=== PATIENT | female | born 1935 ===

== ENCOUNTER 2016-03-17 09:36 | Emergency (ER) | payer MEDICAID ==
[~2016-03-17] VITALS: Ht 154.9 cm; Wt 91.4 kg
[~2016-03-17 09:36] MED LIST: ACET-1890 PO; AZIT250T4 PO; HYDR12.5 PO; LISI-610 PO; METO50TA7 PO; PANT40TA2 PO; PRE20 PO
[2016-03-17 09:40] VITALS: PULSE 48; RESP 18; O2SAT 99
[2016-03-17 10:40] LABS: BASOPHILS % (AUTO) 0.2 % (0-3); EOSINOPHILS % (AUTO) 1.6 % (0-5); MONOCYTES % (AUTO) 5.4 % (4-12); Mean Corpuscular Hemoglobin 28.7 pg (27.0-35.0); Mean Corpuscular Volume 87.3 fL (81-100); NEUTROPHILS % (AUTO) 72.3 % (40-74); Platelet Count 153 bil/L (150-400)
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
[2016-03-17 10:58] VITALS: BP 142/73; PULSE 53; RESP 18; O2SAT 100
--- NOTE | 2016-03-17 11:24 | DRSVH ---
PROCEDURE: X-RAY LEFT TIBIA/FIBULA, TWO VIEWS ([id number]) INDICATIONS: Ground level fall with edema left knee TECHNIQUE: 2 views of the tibia and fibula were acquired. COMPARISON: None. FINDINGS: Bones: No fractures or dislocations. No suspicious bony lesions. Soft tissues: No suspicious soft tissue calcifications or masses. IMPRESSION: No fracture. No osseous lesion. If symptoms and/or clinical suspicion for pathology pers ists, further assessment with repeat radiographs or advanced imaging (e.g. CT, MRI or bone scan) may be helpful for further assessment. Dictated by: Esther Wood MD, PhD on 03/17/2016 at 11:22 Approved by: Esther Wood MD, PhD on 03/17/2016 at 11:23
--- NOTE | 2016-03-17 11:24 | DRSVH ---
PROCEDURE: X-RAY LEFT KNEE, ONE OR TWO VIEWS ([id number]) INDICATIONS: Ground level fall with edema left knee TECHNIQUE: 2 views of the knee were acquired. COMPARISON: None. FINDINGS: Bones: No fractures or dislocations. No suspicious bony lesions. Soft tissues: No joint effusion. No suspicious soft tissue calcifications. IMPRESSION: No fracture. No osseous lesion. If symptoms and/or clinical suspicion for pathology pers ists, further assessment with repeat radiographs or advanced imaging (e.g. CT, MRI or bone scan) may be helpful for further assessment. Dictated by: Esther Wood MD, PhD on 03/17/2016 at 11:21 Approved by: Esther Wood MD, PhD on 03/17/2016 at 11:22
[2016-03-17 12:14] VITALS: BP 142/73; PULSE 53; RESP 18; O2SAT 100
== END 2016-03-17 12:15 | disposition home or self-care (01) ==
LOC: SED 09:36
DX: S89.92XA Unspecified injury of left lower leg, initial encounter (principal); W18.39XA Other fall on same level, initial encounter; Y93.01 Activity, walking, marching and hiking; Y99.8 Other external cause status; Y92.019 Unspecified place in single-family (private) house as the place of occurrence of the external cause; I10 Essential (primary) hypertension; J44.9 Chronic obstructive pulmonary disease, unspecified; Z86.39 Personal history of other endocrine, nutritional and metabolic disease; Z87.891 Personal history of nicotine dependence; Z86.73 Personal history of transient ischemic attack (TIA), and cerebral infarction without residual deficits; Z79.52 Long term (current) use of systemic steroids; Z87.828 Personal history of other (healed) physical injury and trauma

== ENCOUNTER 2016-03-28 20:22 | Emergency (ER) | payer MEDICAID ==
[~2016-03-28] VITALS: Ht 154.9 cm; Wt 93.2 kg
[2016-03-28 20:25] VITALS: PULSE 52; RESP 16; O2SAT 100
--- NOTE | 2016-03-28 21:33 | ED.REPORT ---
HPI-Extremity Problem Lower Date of Service Mar 28, 2016 ED Provider: Shahnaz Sage MD Pt is a 80 y/o female w/ a hx of hypertension, COPD, hyperlipidemia, TIA, presenting to the ED with family due to left leg swelling onset about 2 days ago. The patient was seen here on Mar 17 after a fall at which point x-rays were negative. She c/o associated mild LLE pain, mild subjective fever. Pain is not exacerbated by range of motion. She denies pain above the knee, numbness or weakness of the left leg or foot, change in CP or SOB. She is not anticoagulated. Nursing Notes Stated Complaint: L LEG SWELLING Chief Complaint: Extremity Trauma Nursing Notes Reviewed: Yes Allergies: Coded Allergies: No Known Allergies (Verified , 03/28/16) Scheduled Acetaminophen (Tylenol) 325 Mg Tablet 975 MG PO Q8H Azithromycin (Zithromax (Z-Chandrakant)) 250 Mg Tablet 250 MG PO DIRECTED Take two tablets by mouth on day 1, then take one tablet daily on days 2 through 5. Cephalexin (Keflex) 500 Mg Capsule 500 MG PO QID Hydrochlorothiazide (Hydrochlorothiazide) 12.5 Mg Capsule 12.5 MG PO DAILY Lisinopril (Zestril) 10 Mg Tablet 10 MG PO DAILY Metoprolol Succinate ER (Toprol XL) 50 Mg Tablet.er 50 MG PO DAILY Pantoprazole DR (Protonix) 40 Mg Tablet 40 MG PO DAILYAC Prednisone (PredniSONE) 20 Mg Tablet 40 MG PO DAILY Prednisone (PredniSONE) 20 Mg Tablet 40 MG PO DAILY General Time Seen by MD: 21:29 Chief Complaint Other (Left leg swelling) Hx Obtained From: Patient, Other family... Arrived By: Walk-in Onset Occurred: 3 days ago Symptom Duration: Since onset Location: : Leg left Quality: Fullness, Painful Severity: Current: Mild Severity: Maximum: Mild Recent Healthcare: Recent doctor visit Similar Sx Previous: No Past Medical History Past Medical History Reports: COPD, Hyperlipidemia, Hypertension, Transient ischemic attack Past Surgical History Reports: Inguinal hernia repair Smoking History Former Smoker Social History Alcohol Use: Denies alcohol use Drug Use: Denies drug use Other Social History: Good social support Ambulatory Status Cane Review of Systems Constitutional: Reports: Fever Musculoskeletal: Reports: Extremity pain, Extremity swelling Neurologic: Denies: Numbness, Weakness Complete sys rev & neg: except as marked. Respiratory: Denies: Shortness of breath Cardiovascular: Denies: Chest pain Physical Exam Initial Vital Signs Vital Signs (First) Date Time Temp Pulse Resp B/P Pulse Ox O2 Delivery O2 Flow Rate FiO2 03/28/16 20:25 35.9 52 16 100 Room Air Initial VS: Reviewed Head / Eyes: Atraumatic, Normocephalic, PERRL ENT: Mucous membranes moist, Conjunctiva normal, No scleral icterus Neck: Supple, Full range of motion Respiratory: Breath sounds normal, Clear to auscultation, No respiratory distress Cardiovascular: Regular rate & rhythm, Heart sounds normal, Intact distal pulses Abdomen / GI: Soft Skin: Warm, Dry, No cyanosis Neurologic: Alert, Oriented, Nonfocal Psychiatric: Mood/affect normal, Behavior normal, Normal thought content Lower Extremity / Pelvis / MS: Atraumatic, Full range of motion, No deformity, Neurologic intact, Vascular intact LLE is erythematous and edamatous compared to the right. Calf and interior govea are tender to palpation 2+ DP pulse Ankle / Foot: Atraumatic, No deformity, Neurologic intact, Vascular intact General/Constitutional: Awake, Alert, No acute distress, Cooperative, Not toxic appearing Appearance / Presentation: Positive: Obese Interpretation & Diagnostics Interpretation & Diagnostics: US LLE: No evidence of DVT. Complex fluid collection in the proximal calf. The appearance suggets hematoma. Transmitted to the ED by Carlitos Telles MD at 2310 Lab Results Interpretation Result Diagram: 03/28/16 2329 03/28/16 2313 Test 03/28/16 23:13 03/28/16 23:29 Prothrombin Time 11.4sec (8.1-12.5) Prothromb Time International Ratio 1.06ratio Sodium Level 140mEq/L (134-144) Potassium Level 4.1mEq/L (3.5-5.2) Chloride Level 101mEq/L (97-108) Carbon Dioxide Level 24mmol/L (18-29) Blood Urea Nitrogen 12mg/dL (8-27) Creatinine 1.14mg/dL (0.57-1.00) Estimat Glomerular Filtration Rate 66mL/min (>59) Glucose Level 108mg/dL (60-99) Calcium Level 9.6mg/dL (8.5-10.1) Total Bilirubin 0.4mg/dL (0.0-1.2) Aspartate Amino Transf (AST/SGOT) 13U/L (0-50) Alanine Aminotransferase (ALT/SGPT) 10U/L (0-32) Alkaline Phosphatase 113U/L (25-165) Total Protein 6.7g/dL (6.4-8.4) Albumin 3.9g/dL (3.4-5.0) White Blood Count 8.2th/mm3 (3.8-10.1) Red Blood Count 4.36mil/mm3 (3.90-5.20) Hemoglobin 12.4g/dL (12.0-15.6) Hematocrit 38.0% (35.0-46.0) Mean Corpuscular Volume 87.2fL (81-100) Mean Corpuscular Hemoglobin 28.4pg (27.0-35.0) Mean Corpuscular Hemoglobin Concent 32.6% (32.0-37.0) Red Cell Distribution Width 13.8% (12.3-15.4) Platelet Count 216bil/L (150-400) Neutrophils (%) (Auto) 65.4% (40-74) Lymphocytes (%) (Auto) 24.4% (14-46) Monocytes (%) (Auto) 7.5% (4-12) Eosinophils (%) (Auto) 2.1% (0-5) Basophils (%) (Auto) 0.4% (0-3) Hold Purple Top Tube Received (Received) Hold [place] Top Tube Received (Received) Hold Colon Top Tube Received (Received) X-Ray Interpretation X-Ray Ordered: Tibia fibula left Interpretation / Wet Read by: Wet read ED physician Interpretation: Normal exam, No fracture/dislocation X-Ray Ordered: Knee left Interpretation / Wet Read by: Wet read ED physician Interpretation: Normal exam, No fracture/dislocation Re-Eval/Medical Decision Med Decision/Clinical Course 80-year-old female here with left lower extremity pain, redness, swelling. Differential diagnosis includes but is not limited to DVT versus cellulitis versus fracture versus dislocation. X-rays are unremarkable. Ultrasound shows hematoma without any evidence of DVT. Patient was given her first dose of Keflex in the emergency department, for presumed cellulitis. Her labs show very mild renal insufficiency and normal CBC. She was given a prescription for Keflex to go home with, and strict return precautions. She is amenable to discharge. Re-Evaluation/Progress : Time of Eval: 23:23 Re-Evaluation/Progress Note: Pt rechecked. Informed pt of plan for treatment. Pt understands and agrees with plan for treatment. F/U instructions and RTER warnings given. All questions addressed. Counseled Regarding: Diagnosis, Need for follow-up, When/why to return to ED Discharge & Departure Impression: Primary Impression: Cellulitis of left leg Disposition: Home Discharge Condition All VS Reviewed: Yes Condition: Stable Patient Instructions: Cellulitis (ED) Additional Instructions: The ultrasound showed no sign of blood clot in the leg. The x-rays were normal. The cause of your leg swelling is uncertain, but it may be cellulitis, an infection of the skin which can cause these symptoms. Take the full course of Keflex as directed. Take Ibuprofen as needed for pain. Return to the emergency department for high fever, numbness or weakness of the left leg or foot, vomiting, severe pain, increased swelling, spreading rash, or for other concerning symptoms. Follow-up with your primary care doctor in 2-3 days for a recheck. Referrals: Kandace Manning MD (PCP) Eder Attestation Portions of this note were transcribed by Jason Baumann. I, Dr. Sage, personally performed the history, physical exam and medical decision-making; I reviewed and confirmed the accuracy of the information in the transcribed note. Signed by Eder Hernandez, 03/28/16 - 2200 copies to: Kandace Manning MD, Rebecca A MD Mar 28, 2016 21:33 JASON BAUMANN Mar 28, 2016 21:45
[2016-03-28 23:48] LABS: BASOPHILS % (AUTO) 0.4 % (0-3); EOSINOPHILS % (AUTO) 2.1 % (0-5); MONOCYTES % (AUTO) 7.5 % (4-12); Mean Corpuscular Hemoglobin 28.4 pg (27.0-35.0); Mean Corpuscular Volume 87.2 fL (81-100); NEUTROPHILS % (AUTO) 65.4 % (40-74); Platelet Count 216 bil/L (150-400)
[2016-03-28] MEDS ORDERED: CEPH-512 PO (23:56)
[2016-03-29 00:01] LABS: INR 1.06 ratio
[2016-03-29 00:25] VITALS: BP 148/78; PULSE 48; RESP 18; O2SAT 99
--- NOTE | 2016-03-29 08:03 | DRSVH ---
PROCEDURE: US VEINOUS LEG DUPLEX UNILATERAL, LEFT INDICATIONS: LLE swelling TECHNIQUE: Real-time imaging, as well as color and pulse Doppler interrogation, were performed of the lower extr emity deep veins from the inguinal ligament to the popliteal fossa. COMPARISON: None. FINDINGS: The deep veins are normally compressible, and free of intraluminal thrombus. Color and pu lse Doppler demonstrate normal phasic intraluminal flow. There is normal augmentation response to di stal compression maneuver. Within the medial left calf, there is an intramuscular lobulated fluid collection measuring approxima tely 3.7 x 1.2 x 3.77 m with a few internal heterogeneous echoes. No internal vascularity on color D oppler interrogation. Findings are suggestive of a hematoma. IMPRESSION: 1. No evidence of deep venous thrombosis in the left lower extremity. 2. Lobulated fluid collection in the medial left calf likely representing a hematoma. Dictated by: Fei Ortiz M.D. on 03/29/2016 at 7:58 Approved by: Fei Ortiz M.D. on 03/29/2016 at 8:01
--- NOTE | 2016-03-29 08:04 | DRSVH ---
PROCEDURE: X-RAY LEFT TIBIA/FIBULA, TWO VIEWS ([id number]) INDICATIONS: swelling TECHNIQUE: 2 views of the tibia and fibula were acquired. COMPARISON: [facility], CR, XR TIBIA FIBULA 2VW LT, 03/17/2016, 10:59. FINDINGS: Bones: No fractures or dislocations. There is osteopenia. No suspicious bony lesions. Soft tissues: No suspicious soft tissue calcifications or masses. IMPRESSION: 1. No fracture or dislocation. 2. Osteopenia. Dictated by: Fei Ortiz M.D. on 03/29/2016 at 8:02 Approved by: Fei Ortiz M.D. on 03/29/2016 at 8:03
--- NOTE | 2016-03-29 08:09 | DRSVH ---
PROCEDURE: X-RAY LEFT KNEE, THREE VIEWS ([id number]) INDICATIONS: swelling TECHNIQUE: 3 views of the knee were acquired. COMPARISON: None. FINDINGS: Bones: No fractures or dislocations. There is osteopenia. No suspicious bony lesions. Soft tissues: No joint effusion. No suspicious soft tissue calcifications. IMPRESSION: 1. No fracture or subluxation. Dictated by: Fei Ortiz M.D. on 03/29/2016 at 8:03 Approved by: Fei Ortiz M.D. on 03/29/2016 at 8:07
== END 2016-03-29 00:30 | disposition home or self-care (01) ==
LOC: SED 20:22
DX: L03.116 Cellulitis of left lower limb (principal); R50.9 Fever, unspecified; I10 Essential (primary) hypertension; J44.9 Chronic obstructive pulmonary disease, unspecified; E78.5 Hyperlipidemia, unspecified; Z87.891 Personal history of nicotine dependence; Z86.73 Personal history of transient ischemic attack (TIA), and cerebral infarction without residual deficits

== ENCOUNTER 2016-05-17 19:52 | Observation (INO) | payer MEDICAID ==
[~2016-05-17] VITALS: Ht 157.5 cm; Wt 100.6 kg
[~2016-05-17 19:52] MED LIST changes: +CEPH-512 PO
[2016-05-17 19:54] VITALS: BP 150/52; PULSE 73; RESP 28; O2SAT 100
--- NOTE | 2016-05-17 20:11 | ED.REPORT ---
HPI-Chest Pain 40 and Over Date of Service May 17, 2016 ED Provider: Jaime Gandara MD This is a 80 year old female with a history of a-fib, obesity, COPD, hyperlipidemia, HTN, and TIA presenting to the emergency department via EMS complaining of sternal chest pressure that began 2 hours ago and is now resolved. Episode was of sudden onset while watching TV, lasted approximately ten-twenty minutes, and was associated with diachoresis and SOB. Denies radiation of pain, nausea, vomiting, change LOC, or any pain at this time. Family member present in the room states she was found to be SOB and clenching her chest while she reported chest pressure. Pt took normal daily ASA today. Reports history of similar episodes previously. Recent evaluation by Dr. Paul , sand screener due to bradycardia that was found by her aeronautical products sales engineer. Nursing Notes Stated Complaint: CHEST PAIN RESOLVED Chief Complaint: Chest Pain Nursing Notes Reviewed: Yes ([facility], [employer] not reconciled) Allergies: Coded Allergies: No Known Allergies (Verified , 03/28/16) Scheduled Aspirin Chew (Aspirin Chew) 81 Mg Chew 81 MG PO DAILY Atorvastatin (Lipitor) 40 Mg Tablet 40 MG PO HS Cholecalciferol (Vitamin D3) (Vitamin D) 1,000 Unit Tablet 1,000 UNIT PO DAILY Hydrochlorothiazide (Hydrochlorothiazide) 25 Mg Tablet 12.5 MG PO QAM Lisinopril (Zestril) 10 Mg Tablet 10 MG PO DAILY Metoprolol Succinate ER (Toprol XL) 50 Mg Tablet.er 50 MG PO DAILY Pantoprazole DR (Protonix) 40 Mg Tablet 40 MG PO DAILYAC Scheduled PRN Acetaminophen (Acetaminophen) 325 Mg Tablet 650 MG PO Q4H PRN PRN For Fever Albuterol HFA (Proair HFA) 8.5 Gm Hfa.aer.ad 2 PUFFS INHALATION Q4H PRN PRN For Shortness of Breath General Time Seen by MD: 20:04 Chief Complaint Chest pain Hx Obtained From: Patient Arrived By: Ambulance Sudden in Onset?: Yes Onset Occurred: 1 - 4 hours ago Symptom Duration: Since onset Severity: Current: No pain currently Severity: Maximum: Mild Pertinent Negative: Pt denies other symptoms Recent Healthcare: No recent doctor visit, No recent hospitalization Similar Sx Previous: No Past Medical History Past Medical History Notes: Admit October 2015 for shortness of breath Past Medical History History of paroxysmal atrial fibrillation History of possible TIA History of obesity History of right-sided colon cancer Reports: COPD, Hyperlipidemia, Hypertension, Transient ischemic attack Past Surgical History History of exploratory laparotomy for perforated small bowel which occurred during a ventral hernia repair Multiple incision and drainage of fat necrosis post laparotomy Right-sided colectomy for obstructing colon cancer Reports: Cholecystectomy, Inguinal hernia repair, Tonsillectomy Smoking History Former Smoker (quit after 50+ years) Social History Alcohol Use: Denies alcohol use Drug Use: Denies drug use Other Social History: Good social support Ambulatory Status Cane Review of Systems Constitutional: Denies: Chills, Fever Respiratory: Reports: Shortness of breath, Denies: Non-productive cough Cardiovascular: Reports: Chest pain GI: Denies: Abdominal pain, Nausea, Vomiting Skin: Reports Diaphoresis Neurologic: Denies: Change LOC, Headache Complete sys rev & neg: except as marked. Physical Exam Initial Vital Signs Vital Signs (First) Date Time Temp Pulse Resp B/P Pulse Ox O2 Delivery O2 Flow Rate FiO2 05/17/16 19:54 36.5 73 28 150/52 100 05/17/16 21:12 Room Air Initial VS: Reviewed, Vital signs normal Head / Eyes: Atraumatic, Normocephalic, PERRL ENT: Mucous membranes moist, Conjunctiva normal, No scleral icterus Neck: Supple, Non-tender, Full range of motion Extremities: Vascular intact, Neuro intact, No swelling, No tenderness Skin: Warm, Dry, No cyanosis Neurologic: Alert, Oriented, Nonfocal Psychiatric: Mood/affect normal, Behavior normal, Normal thought content General/Constitutional: Awake, Alert Respiratory / Chest: Breath sounds NL, Breath sounds = bilat, No respiratory distress, No rales, No rhonchi, No wheezing, No stridor, No chest tenderness Cardiovascular: Heart rate NL, Regular rhythm, Heart sounds NL, No murmurs, Peripheral circulation NL, Pulses = bilaterally, No gross BP differential Abdomen: Soft, Non-tender, McBurney's non-tender, No guarding, No rebound, BS normoactive, No distention, No hernia, No palpable mass Interpretation & Diagnostics Lab Results Interpretation Result Diagram: 05/17/16202405/17/162024 Test 05/17/16 20:25 White Blood Count 7.6th/mm3 (3.8-10.1) Red Blood Count 4.46mil/mm3 (3.90-5.20) Hemoglobin 12.3g/dL (12.0-15.6) Hematocrit 38.3% (35.0-46.0) Mean Corpuscular Volume 85.9fL (81-100) Mean Corpuscular Hemoglobin 27.6pg (27.0-35.0) Mean Corpuscular Hemoglobin Concent 32.1% (32.0-37.0) Red Cell Distribution Width 14.4% (12.3-15.4) Platelet Count 196bil/L (150-400) Neutrophils (%) (Auto) 60.4% (40-74) Lymphocytes (%) (Auto) 28.3% (14-46) Monocytes (%) (Auto) 8.3% (4-12) Eosinophils (%) (Auto) 2.5% (0-5) Basophils (%) (Auto) 0.4% (0-3) Sodium Level 133mEq/L (134-144) Potassium Level 4.0mEq/L (3.5-5.2) Chloride Level 96mEq/L (97-108) Carbon Dioxide Level 24mmol/L (18-29) Blood Urea Nitrogen 18mg/dL (8-27) Creatinine 1.17mg/dL (0.57-1.00) Estimat Glomerular Filtration Rate 64mL/min (>59) Glucose Level 126mg/dL (60-99) Calcium Level 9.4mg/dL (8.5-10.1) Magnesium Level 2.1mg/dL (1.6-2.6) Total Bilirubin 0.4mg/dL (0.0-1.2) Aspartate Amino Transf (AST/SGOT) 15U/L (0-50) Alanine Aminotransferase (ALT/SGPT) 11U/L (0-32) Alkaline Phosphatase 113U/L (25-165) Troponin T 0.010ug/L (0.0-0.011) Total Protein 7.2g/dL (6.4-8.4) Albumin 3.8g/dL (3.4-5.0) Hold Colon Top Tube Received (Received) ECG Interpretation ECG Interpretation: SR at a rate of 47 new first degree heart block sinus bradycardia Time: 20:18 Interpreted by: ED physician X-Ray Chest Interpretation Chest Xray Interpretation: IMPRESSION: Acute disease is not seen in a semiupright portable chest. Dictated by: Sage Salazar M.D. on 05/17/2016 at 20:53 Approved by: Sage Salazar M.D. on 05/17/2016 at 20:54 Re-Eval/Medical Decision Med Decision/Clinical Course This is a 80-year-old female with multiple risk factors who presents with an episode of chest discomfort that lasts about 20 minutes as if something sitting on her chest. Symptoms seem cardiology for an incidental bradycardia, just completed some sort of ZO patch monitoring-but does not have a previous known history of coronary artery disease. Symptoms resolved by the time she arrived to the department. It is unclear if she may have had a second episode of brief discomfort, if so that also lasted under 10-20 minutes. Apparently she cried out and got her family's attention, was clutching her chest, complained of some sense of shortness of breath, possibly mild diaphoresis-there is no pleuritic component. Symptoms resolved on their own. And she was brought in. On exam she is a tremors. EKG reveals a new first-degree heart block, but no clear skewed ischemic changes. She is mildly bradycardic. Blood work is normal including initial troponin. Chest x-ray is negative for markers of heart failure. Also patient with multiple risk factors presents with chest discomfort, somewhat difficult to evaluate as she is hard of hearing, and according to family does not complain of much-given this, after discussion of options the plan is overnight observation admission for serial enzymes. Has had recent stress test tenting that was negative in October 2015. Received aspirin and Nitropaste. Source of Hx: Old records Consultation : Referral / Consult Name: Cathy Rubin DO Consulted With: Hospitalist Call Returned at: 21:45 Line Assembler [employer]: Accepts admit Differential Diagnosis: Positive: Acute myocardial infarct, Chest pain, acute, Negative: Asthma exacerbation, Congestive heart failure, Esophageal rupture, Gun shot wound chest, Hypertroph cardiomyopathy, Pneumomediastinum, Pneumonia, Pneumothorax, Pulmonary edema, Pulmonary embolism, Stab wound chest Counseled Regarding: Diagnosis, Lab results, Need for follow-up, Need for admission Discharge & Departure Primary Impression: Chest pain Chest pain type: unspecified Qualified Code: R07.9 - Chest pain, unspecified Disposition: ADMITTED TO HOSPITAL Discharge Condition All VS Reviewed: Yes Condition: Stable Referrals: Kandace Manning MD (PCP) Scribe Attestation Portions of this note were transcribed by Yifan Aguilar. I, Dr. Gandara personally performed the history, physical exam and medical decision-making; I reviewed and confirmed the accuracy of the information in the transcribed note. Signed by: anjali Rogers. 05/17/2016, 23:30. Jaime Gandara MD May 17, 2016 20:11 YIFAN AGUILAR May 17, 2016 20:18
[2016-05-17 20:37] LABS: BASOPHILS % (AUTO) 0.4 % (0-3); EOSINOPHILS % (AUTO) 2.5 % (0-5); MONOCYTES % (AUTO) 8.3 % (4-12); Mean Corpuscular Hemoglobin 27.6 pg (27.0-35.0); Mean Corpuscular Volume 85.9 fL (81-100); NEUTROPHILS % (AUTO) 60.4 % (40-74); Platelet Count 196 bil/L (150-400)
--- NOTE | 2016-05-17 20:55 | DRSVH ---
PROCEDURE: X-RAY CHEST ONE VIEW, PORTABLE ([id number]) INDICATIONS: resolved chest pain TECHNIQUE: One view of the chest was acquired. COMPARISON: [facility], CR, XR CHEST 1VW (PORTABLE), 10/29/2015, 15:35. FINDINGS: Surgical changes and devices: None. Lungs and pleura: No pleural effusions or pneumothorax. Lungs are clear. Mediastinum: Mediastinal contours appear normal. Heart size is normal. Bones and chest wall: No suspicious bony lesions. Overlying soft tissues appear unremarkable. IMPRESSION: Acute disease is not seen in a semiupright portable chest. Dictated by: Sage Salazar M.D. on 05/17/2016 at 20:53 Approved by: Sage Salazar M.D. on 05/17/2016 at 20:54
[2016-05-17 20:59] LABS: TROPONIN T 0.01 ug/L (0.0-0.011)
[2016-05-17 21:10] LABS: Magnesium 2.1 mg/dL (1.6-2.6)
[2016-05-17 21:12] VITALS: BP 138/39; PULSE 53; RESP 17; O2SAT 100
[2016-05-17] MEDS ORDERED: HYDR25TA4 PO (21:52)
[2016-05-17] MEDS ORDERED: ASPI81TA3 PO (21:54)
[2016-05-17] MEDS ORDERED: ACET325T51 PO (21:54)
[2016-05-17] MEDS ORDERED: ALBU8.5H2 INHALATION (21:54)
[2016-05-17] MEDS ORDERED: CHOL100043 PO (21:54)
[2016-05-17] MEDS ORDERED: LIP40 PO (21:54)
[2016-05-17 22:09] VITALS: PULSE 50; RESP 15; O2SAT 100
--- NOTE | 2016-05-17 22:11 | PCM.HPMED ---
Subjective Date of Service May 17, 2016 Primary Provider: Admitting Physician: Primary Care Physician: Cristela East Attending Physician: Admit Status: From the Emergency Department Chief Complaint: Left side chest 5/10 pain/pressure, diaphoresis and SOB History of Present Illness: This is a pleasant 80 Y/O F with a hx of A-fib, hx of tachybradycardia syndrome , sinus bradycardia obesity, COPD, hyperlipidemia, HTN, and TIA 2009, previous history of [id number] tobacco use and quit September 2015, who presented to the ED with complaint of sternal/left sided chest pain described as a pressure and rated 5/10 onset 1900 on 05/17/2016. Patient currently is not having chest pain. Patient describes similar episodes have occurred as early as this morning prior to admission. Patients family is present in the room and assisting with history. Patient's family state that the pain seems to always occur while patient is at rest. Patient's family states she was found to be SOB and clenching her chest while she reported chest pressure. Patient states that the chest pain is worsened with exertion. When asked to point where the pain is located she points to the left anterior chest. Patient takes a daily baby aspirin. Of note patient was hospitalized in September 2015 with similar chest pain and was diagnosed at that time with COPD exacerbation. Of note patient has chronic dry cough. Patient is somewhat of a poor historian given her hearing impairment. The current episode of chest pain was described as occurring while patient was at rest watching television and lasting approximately ten-twenty minutes. Associated symptoms include Medel sign, SOB , and diaphoresis. Patient denied radiation of pain, fever, nausea, vomiting, sore throat, productive cough, sick contacts, upper respiratory illness. Reports history of similar episodes previously the most recent occurring this morning . Patient was seen by Dr. Bear her electrical continuity inspector on 05/14/2016 and had Holter 24-hour Holter monitor placed with the results still pending at this time. Patient's family reporting patient had Doppler ultrasound done of right lower extremity for possible DVT recently that was found to be negative. Patient had a cardiac stress testing done maybe on 10/17/2015 showing normal myocardial perfusion study, hyperdynamic left ventricle function, full low risk myocardial perfusion scan. Echo 10/17/2015 with left ventricular thickness mildly increased, LV systolic function normal, LVEF 65-70%, no focal wall motion irritability, possible impaired early relaxation of left ventricle, no significant valve abnormalities. Vital signs in ED: Temperature 36.5, pulse 73, respiratory rate 28, blood pressure 150/52 with a map of 84, 100% on room air. Repeat vitals pulse 53, respiratory rate 17, blood pressure 138/39 with a map of 72, 100% on room air. Hemogram: Within normal limits Chemistry panel: Hyponatremia at 133, potassium 4.0, hypochloremia at 96, creatinine 1.17 appears to be patient's baseline creatinine, glucose 126, troponin 0.010. Otherwise normal chemistry panel. Chest x-ray showed no acute process. EKG showed sinus bradycardia with a rate of 47, WY interval 224 ms, consistent with first-degree AV block, otherwise normal EKG Review of Systems: A comprehensive review of systems was conducted and was negative except as mentioned in history of present illness. Allergies Coded Allergies: No Known Allergies (Verified , 03/28/16) Home Medications Acetaminophen (Tylenol) 325 Mg Tablet 975 MG PO Q8H Azithromycin (Zithromax (Z-Chandrakant)) 250 Mg Tablet 250 MG PO DIRECTED Take two tablets by mouth on day 1, then take one tablet daily on days 2 through 5. Cephalexin (Keflex) 500 Mg Capsule 500 MG PO QID Hydrochlorothiazide (Hydrochlorothiazide) 12.5 Mg Capsule 12.5 MG PO DAILY Lisinopril (Zestril) 10 Mg Tablet 10 MG PO DAILY Metoprolol Succinate ER (Toprol XL) 50 Mg Tablet. Patient takes one half a tablet of 50 MG PO DAILY Pantoprazole DR (Protonix) 40 Mg Tablet 40 MG PO DAILYAC Prednisone (PredniSONE) 20 Mg Tablet 40 MG PO DAILY Medications aspirin 81 mg tablet Atorvastatin 40 mg tablet daily Vitamin D 3 50,000 units daily ProAir metered dose inhaler 2 puffs every 4-6 hours as needed PMH Admit October 2015 for shortness of breath History of paroxysmal atrial fibrillation History of possible TIA 1980s History of obesity History of right-sided colon cancer COPD Sinus bradycardia History of chest pain Tachybradycardia syndrome Hypertension Hyperlipidemia Surgical History History of exploratory laparotomy for perforated small bowel which occurred during a ventral hernia repair Multiple incision and drainage of fat necrosis post laparotomy Right-sided colectomy for obstructing colon cancer Reports: Cholecystectomy, Inguinal hernia repair, Tonsillectomy Family History -Mother from unknown cause in her 70s -Father from unknown cause when patient was an infant -Brother from MVA Social History Hx Alcohol Use: No Hx Substance Use: No Hx Tobacco Use: No Smoking Status: Former Smoker (quit after 50+ years) Exam Vital Signs Vital Sign - Last Date Time Temp Pulse Resp B/P Pulse Ox O2 Delivery O2 Flow Rate FiO2 05/17/16 21:12 53 17 138/39 100 Room Air 05/17/16 19:54 36.5 Exam General: Obese, patient is alert, oriented, very hearing impaired, lying comfortably in bed in no apparent distress. HEENT: NC/AT, eyes PERRLA, EOMI, neck soft supple, no adenopathy, no masses, throat mucous membranes pink and moist, no erythema, no exudates, poor dentition. Lungs: CTAB all pierre, no wheezes, no rhonchi, no crackles, no adventitious lung sounds, no use of accessory muscles of respiration, good air movement, good respiratory effort. Heart: Bradycardia, rhythm is regular, no murmur heard, no rub, no click, somewhat difficult to auscultate heart sounds given body habitus Abdomen: Obese, soft, nontender, nondistended, bowel sounds active, large anterior scar secondary to surgical repair of hernia Extremities: Muscle strength, 5 out of 5 lower extremity and symmetric laterally , pulses equal and symmetric upper/lower extremity including radial and dorsalis pedis, mild left lower extremity pitting edema just proximal to the ankles and painful to touch. Calf pain to palpation bilaterally. Positive Homans sign on the left. Neurologic: See neurologically intact, PT in full sentences, no focal neurological signs, [id number], [id number], no pronator drift, no hemineglect. Skin: Chronic appearing eczema with with atrophic skin and scarring underneath the breasts and on abdominal scar. Candidiasis of the perineal area with foul odor. Lab and Diagnostics Result Diagram: 05/17/16202405/17/162024 X-Rays, CTs and MRIs Date of Service: 05/17/161953 PROCEDURE: X-RAY CHEST ONE VIEW, PORTABLE ([id number]) INDICATIONS: resolved chest pain TECHNIQUE: One view of the chest was acquired. COMPARISON: [facility], CR, XR CHEST 1VW (PORTABLE), 10/29/2015, 15: 35. FINDINGS: Surgical changes and devices: None. Lungs and pleura: No pleural effusions or pneumothorax. Lungs are clear. Mediastinum: Mediastinal contours appear normal. Heart size is normal. Bones and chest wall: No suspicious bony lesions. Overlying soft tissues appear unremarkable. IMPRESSION: Acute disease is not seen in a semiupright portable chest. Dictated by: Sage Salazar M.D. on 05/17/2016 at 20:53 Approved by: Sage Salazar M.D. on 05/17/2016 at 20:54 Assessment & Plan This is a pleasant 80-year-old female with past medical history of paroxysmal A. fib, tachybradycardia syndrome, sinus bradycardia, obesity, COPD, hyperlipidemia, hypertension, presented to the ED with recurrent episodes of unstable angina type chest pain that does not radiate. Of note patient had initial negative troponin and is currently not complaining of chest pain. He was admitted for acute coronary syndrome rule out, and sinus bradycardia with new-onset first-degree heart block. # Acute onset chest pressure/pain rule out acute coronary syndrome, present on admission, active -She is currently stable and not experiencing any chest pain at this time. -He states that she has experienced similar events in the past. -Patient has history of paroxysmal A. fib that occurred on recent hospitalization for colon cancer resection has not recurred -Patient has a history of sinus bradycardia, and tachybrady syndrome. No pacemaker placed in the past because asymptomatic. -Tachybradycardia syndrome in 2013 with 2 week Zio patch. Conclusion was no need for pacemaker. -She is electrical continuity inspector is Dr. Bear who recently placed cable driller on 2016 for sinus bradycardia. -Patient had a cardiac stress testing done maybe on 10/17/2015 showing normal myocardial perfusion study, hyperdynamic left ventricle function, full low risk myocardial perfusion scan. -Echo 10/17/2015 with left ventricular thickness mildly increased, LV systolic function normal, LVEF 65-70%, no focal wall motion irritability, possible impaired early relaxation of left ventricle, no significant valve abnormalities. -EKG, showed sinus bradycardia with a rate of 47, WY interval 224 ms, consistent with first-degree AV block, otherwise normal EKG. reviewed -Hemogram: Within normal limits -Chest x-ray showed no acute process. Reviewed. -Troponin T 0.010, Will trend Troponin X 3 -Keep O2 Sats keep > 94% -IV fluids 80 mL per hour NS -Continue home Metoprolol ER 25 mg daily, hold for stress test 05/18 and bradycardia -Continue home Lisinopril 10 mg daily -Morphine for pain control -Nitro SL, Nitro Clay, Nitro Paste (PRN) -Aspirin 325 mg daily -Continuous Cardiac Monitoring/BP monitoring -Cardio Consult in the a.m., patient's electrical continuity inspector is Dr. Miranda -Labs (Lipid Panel, hgbA1, CBC, CMP, PT/PTT/INR) ordered and pending -Heart Healthy Diet -Cardiology consult, am team to contact, recs appreciated Acute kidney injury, acute, POA -unclear etiology prerenal vs intrarenal -will continue to monitor and avoid nephrotoxic medications -if remains abnormal will order urine electrolytes, possible renal US, and consult nephrology # First-degree heart block, and sinus bradycardia, post on admission, active - As seen on EKG today - Continue cardiac monitoring as above - We will hold metoprolol given bradycardia - Cardiology consult as stated previously # Hyponatremia with hypochloremia, present on admission, active - Sodium 133, chloride 96 - IV normal saline at 80 mL per hour maintenance # Hyperglycemia, present on admission, active - Hemoglobin A1c ordered and pending - We will continue to monitor # Bilateral calf pain, present on admission, active - Patient complains of history of chronic lower extremity cramps - Positive Homans sign on the left - Positive tenderness to palpation of the posterior calf bilaterally - Patient's family reporting that patient had right lower extremity Doppler ultrasound that was negative recently - We will order d-dimer and if positive will get bilateral duplex ultrasound of the lower extremity Chronic problems # Candidate for intertrigo, present on admission, active - Perineal area with significant odor and moist appearing rash - Nystatin and cream to affected area # Chronic eczema History of paroxysmal atrial fibrillation -Continuous cardiac monitoring as stated previously -No further episodes of A. fib recorded since was diagnosed during hospitalization September 2015 History of obesity History of right-sided colon cancer COPD - Currently in no respiratory distress, O2 sats in the 100% on room air Hyperlipidemia, - Continue home atorvastatin Hypertension - Continue home metoprolol tachybradycardia syndrome - Patient has 24-hour Holter outpatient monitoring system pending result Sinus bradycardia - Patient has 24-hour Holter outpatient monitoring system pending result Sinus bradycardia History of chest pain Disposition: Admitted to in patient service for observation and further workup, secondary to severity of presenting symptoms, treatment plan, complexity of clinical work up, and risk of adverse events. CODE STATUS: Chest compressions okay however DO NOT INTUBATE PCP: Cristela RIZZO DVT PE prophylaxis: SCD's/Enoxiparin/SubQ heparin Q8H Contact: Patient lives with her daughter Jennifer Martin who is does need a power of tax attorney for number [phone] Pain Evaluation: Adequate Pain Control VTE Prophylaxis: Sub-Q Heparin (Unfractionated) Resuscitation Status: Limited Interventions (DO NOT INTUBATE, chest compressions okay) Attending Statement The patient was seen and examined together with house staff on 05/18/2016 and I agree with the history, exam and plan as outlined in the note above. Keith Salazar DO May 17, 2016 22:11 Cathy Rubin DO May 18, 2016 04:06 Keith Salazar DO May 17, 2016 22:11 Keith Salazar DO May 17, 2016 22:11
[2016-05-17 22:43] VITALS: PULSE 46
[2016-05-17] MEDS ORDERED: Alum-Mag Hydrox-Simeth 30 mL Suspension PO PRN (22:55)
[2016-05-17] MEDS ORDERED: Polyethylene Glycol (PEG) 17 Gm Powder PO PRN (22:55)
[2016-05-17] MEDS ORDERED: Ondansetron 2 mg/mL 2 mL Inj IVPUSH PRN (22:55)
[2016-05-17] MEDS ORDERED: Senna-Docusate 8.6-50 mg Tablet PO PRN (22:55)
[2016-05-17 22:56] VITALS: BP 173/68; PULSE 50; RESP 20; O2SAT 99
[2016-05-17] MEDS: 0.9% Sodium Chloride 1,000 ML IV SCH (23:18)
--- NOTE | 2016-05-17 23:25 | NUR ---
Admission Note Pt admitted to [facility] [place] on stretcher at 2235, alert and orientedx3, very [place] even with hearing aid, pt states chest pressure resolved, denies chest pain/SOB/headache/N/V/Fever/Chills. Intermittent nonproductive cough. Morbid obese, appears SOB with activities when get up to C, had smear BM, abdominal cramp prior BM, now resolved. Decreased lung sounds bilaterally, no wheezes or crackles noted, Tele applied SB 46 with 1st AVB per youth nutritional monitor, distant S1 S2, no murmur. Abdomen soft, non tender, hypoactive BT. Trace edema at bilateral LEs, generalized eczema with open area at under breast, abdominal fold,bilateral groin, back, buttock, left flank and left thigh, foul smell. Keith Post came to see pt and notified pt HR 46,high BP 173/68 and skin problem, nystatin requested, pt oriented to call light, care ongoing.
[2016-05-17 23:55] LABS: INR 1.04 ratio
[2016-05-18] VITALS (7 sets, daily range): BP systolic 112–173; BP diastolic 68–79; PULSE 47–60; RESP 18; O2SAT 96–100
[2016-05-18 00:16] LABS: Magnesium 2.1 mg/dL (1.6-2.6)
[2016-05-18] MEDS: Sodium Chloride LOK Flush 10 mL Syringe IVFLUSH SCH ×3 (00:30→16:30)
[2016-05-18] MEDS: Heparin 5,000 Unit/mL Inj SUBQ SCH ×3 (00:38→17:48)
[2016-05-18 06:21] LABS: BASOPHILS % (AUTO) 0.5 % (0-3); EOSINOPHILS % (AUTO) 3.1 % (0-5); MONOCYTES % (AUTO) 6.8 % (4-12); Mean Corpuscular Hemoglobin 27.6 pg (27.0-35.0); Mean Corpuscular Volume 85.2 fL (81-100); NEUTROPHILS % (AUTO) 66.9 % (40-74); Platelet Count 202 bil/L (150-400)
[2016-05-18] MEDS ORDERED: Albuterol 2.5 mg/3 mL Inhalation Solution NEB PRN (07:55)
[2016-05-18] MEDS: Pantoprazole 40 mg ER24 Tablet PO SCH (08:25)
[2016-05-18] MEDS: 0.9% Sodium Chloride 1,000 ML IV SCH (12:20)
--- NOTE | 2016-05-18 14:03 | NUR ---
Sensation/Activity Pt reports full sensation, reports that baseline activity at home is minimal - occasionally gets up for bathroom and ADL. Around 1100 pt reports legs are feeling numb. Assisted pt out of bed into Alina-chair. Pt steady on feet but weak, 1P assist for safety. Once in the chair pt reports sensations are returning. Few hours later pt reports feeling some numbness again while in the chair. 1P assist to bathroom and sensations returned. New goal for pt to get out of bed and walk a little 3x a day. Board updated to remind pt and staff. Continuing with care. Addendum: 05/18/16 at 1948 by IGNACIA CARLSON RN Pt later reported continued numbness in L foot. Further assessed found greater edema/swelling on L side and warmer skin than distal leg. paged to inform and on site for further eval. New orders placed to rule out DVT. NOC shift aware and following up with care.
--- NOTE | 2016-05-18 15:54 | NUR ---
Social Work Note - Attempted Initial Assessment: D/A: The Pt is a 80 y/o female that was admitted under observation status for chest pain. Her PCP is MATTHIAS East and her insurance is [facility] Medicaid. EMR reviewed. SW met with the Pt and family to explain role and discuss discharge planning. The Pt lives in a one level home with a ramp on the [facility] with family. The Pts DPOA is her daughter Joelle, paperwork on file. SW was unable to complete initial assessment due to xray. Cardiology consulted. SW to follow for needs and complete initial assessment. P: The Pt is not medically stable for discharge at this time. Cardiology consulted. SW to follow for needs and complete initial assessment. Delores Mendoza MSW Fiber Locking Supervisor ANGUS Ribera
--- NOTE | 2016-05-18 16:38 | DRSVH ---
PROCEDURE: US VEINOUS LEG DUPLEX UNILATERAL, LEFT INDICATIONS: numbness, swelling TECHNIQUE: Real-time imaging, as well as color and pulse Doppler interrogation, were performed of the lower extr emity deep veins from the inguinal ligament to the popliteal fossa. COMPARISON: None. FINDINGS: The deep veins are normally compressible, and free of intraluminal thrombus. Color and pu lse Doppler demonstrate normal phasic intraluminal flow. There is normal augmentation response to di stal compression maneuver. IMPRESSION: Negative for DVT Dictated by: Dorian Morales M.D. on 05/18/2016 at 16:36 Approved by: Dorian Morales M.D. on 05/18/2016 at 16:37
--- NOTE | 2016-05-18 20:05 | DRSVH ---
PROCEDURE: X-RAY LEFT ANKLE, MINIMUM THREE VIEWS ([id number]) INDICATIONS: numbness, pain TECHNIQUE: 4 views of the ankle were acquired. COMPARISON: [facility], CR, XR TIBIA FIBULA 2VW LT, 03/28/2016, 22:41. FINDINGS: Bones: No fractures or dislocations. Ankle mortise is normally aligned. No suspicious bony lesions . Soft tissues: No tibiotalar joint effusion. Achilles tendon appears normal. 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 No t rauma found. Dictated by: Amor Ritter M.D. on 05/18/2016 at 20:02 Approved by: Amor Ritter M.D. on 05/18/2016 at 20:03
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
[2016-05-19] MEDS: Sodium Chloride LOK Flush 10 mL Syringe IVFLUSH SCH ×2 (00:30→07:31)
[2016-05-19] MEDS: 0.9% Sodium Chloride 1,000 ML IV SCH (01:01)
[2016-05-19] MEDS: Heparin 5,000 Unit/mL Inj SUBQ SCH ×2 (01:01→07:31)
[2016-05-19 01:08] VITALS: BP 146/81; PULSE 63; RESP 18; O2SAT 100
[2016-05-19 04:54] VITALS: BP 157/74; PULSE 66; RESP 18; O2SAT 100
--- NOTE | 2016-05-19 07:18 | NUR ---
leg cramping/Activity pt has been resting most of the shift. Denied chest pain or discomfort. pt reported leg cramping, but doesn't want to take any medication for it. pt reported that ambulating and sitting on the recliner kiki helped with the cramping. pt ambulated multiple times to the restroom. will continue to monitor.
[2016-05-19] MEDS: Pantoprazole 40 mg ER24 Tablet PO SCH (07:31)
[2016-05-19 09:21] VITALS: PULSE 65
--- NOTE | 2016-05-19 11:08 | NUR ---
Social Work: Initial Assessment / Readiness for d/c Data: Pt is a 80 y/o female admitted for chest pain, pt's PCP is Dr East, pt's insurance is [facility] Medicaid. EMR reviewed. Readmit score is 2, low. GO GO DANCER met with pt and daughter at bedside, role explained. Pt states she lives in [place] with her daughter in a single story home where she uses no DME. Pt and daughter states she is independent with ADL's. Pt states she does not drive, has no hx of HH or SNF, no LTC or VA benefits, and is not a caregiver. MD states pt likely to d/c today. No d/c planning needs anticipated at this time. GO GO DANCER will continue to follow if needs arise. Assessment: Pt who is independent at baseline. Plan: Pt will d/c home via POV with daughter when medically stable, likely today. No d/c planning needs anticipated at this time. GO GO DANCER will continue to follow if needs arise. ANGUS Mcneal Addendum: 05/19/16 at 1119 by AMBER CLINTON Amended: Links added.
--- NOTE | 2016-05-19 12:25 | DRSVH ---
PROCEDURE: 1 DAY PHARMACOLOGICAL STRESS TEST Rest and pharmacological stress myocardial perfusion SPECT with gated imaging and ejection fraction RADIOPHARMACEUTICAL: 15.4 mCi Tc-99m tetrafosmin IV at rest and 46.1 mCi Tc-99m tetrafosmin IV at pea k effect of pharmacological stress. A [id number] was performed. INDICATIONS: 80 year-old woman with chest pain. The patient has hypertension, hyperlipidemia, and at rial fibrillation. Evaluate myocardial ischemia. TECHNIQUE: Radiopharmaceutical was injected at peak stress test, and also at rest. SPECT images wer e obtained. SPECT myocardial perfusion images were displayed in short axis, horizontal long axis, an d vertical long axis views. Gated images were reviewed using [employer] software. COMPARISON: [facility], [place], [place] CARDIAC STRESS TEST PHARM, 10/17/2015, 11:00. CARDIAC STRESS: A pharmacologic stress test was performed under the supervision of an attending staff, using an infus ion of Lexiscan. Hemodynamic data: There is normal blood pressure and heart rate response to pharmacologic stress. Symptoms: The patient denied anginal chest pain. Aminophylline: Not administered. EKG: No diagnostic changes of ischemia; no ectopy. FINDINGS: Raw data: There is good myocardial uptake of radiotracer. No significant motion artifacts. Left ventricle function: Gated images demonstrate normal left ventricular wall thickening. No segme ntal wall motion abnormalities. No transient ischemic dilation. Left ventricle resting end diastoli c volume is normal. Left ventricle stress ejection fraction is greater than 70%; normal range is abo ve 45%. Myocardial perfusion: There is normal distribution of activity in the right and left ventricular sari cardium. No fixed or reversible perfusion defects. Comparison to prior examinations: Compared with the last exam on 10/17/2015, there is no significant c hange. IMPRESSION: 1. Normal myocardial perfusion images. 2. Normal left ventricular volume and systolic function. 3. No chest pain or diagnostic EKG changes for ischemia. PQRS ATTESTATIONS: Measure 322 - Is this imaging test primarily performed on a low-risk surgery patient for preoperative evaluation within 30 days preceding their low-risk non-cardiac surgery? Low-risk surgery is defined as cardiac or myocardial infarction less than 1%, including (but not limited to) endoscopic pr ocedures, superficial procedures, cataract surgery, and excisional breast surgery: Answer: No Measure 323 - Is this imaging test performed primarily for the monitoring of an asymptomatic patient who had percutaneous coronary intervention on the visit date or within 2 years of the visit date? An swer: No Measure 324 - Is this imaging test performed primarily for the initial detection and risk assessment on an asymptomatic, low coronary heart disease patient? Low CHD risk definition = clinicians should consider the maximum number of available patient factors used to estimate risk based on Swain (A TP III criteria), typically age, gender, diabetes, smoking status, and use of blood pressure medicati on, and integrate age appropriate estimates for missing elements, such as LDL or standard blood press ure. Answer: No Dictated by: Maggie Peralta M.D. on 05/19/2016 at 12:21 Approved by: Maggie Peralta M.D. on 05/19/2016 at 12:24
--- NOTE | 2016-05-19 15:16 | PCM.DIMED ---
Discharge Instructions Date of Service May 19, 2016 Dates of Hospitalization May 17, 2016 at 22:15 Discharge Diagnosis Discharge Diagnosis Chest pain, hyponatremia, hyperglycemia (pre-diabetes), chronic afib, tachy moraima syndrome Medication Instructions Please take Gabapentin 100 mg as needed for nueropathic pain in left leg Start lisinopril 10 mg QD Take Metoprolol Tartrate 12.5 mg BID, Stop Metoprolol Succinate 25 mg. Follow up with PCP about the Left foot pain Follow up with your demurrage worker on Holter results when you see him in 2 weeks for f/u Diet Low fat, Low Sodium, Heart Healthy, Diabetic Call your provider Fever or Chills, Shortness of breath, Bleeding, Chest pain, Vomitting, Excessive diarrhea, Weakness (unilateral), Other Patient Instructions Follow-up plan F/U with residency clinic in 1-2 weeks. F/U with Cardiology / Dr. Paul in 2 weeks. Silvia Bain DO May 19, 2016 15:16
--- NOTE | 2016-05-19 15:18 | NUR ---
Social Work: Discharge Data: Pt is on day 2 of hospitalization. D/C orders are in. EMR reviewed. No d/c planning needs at this time. TEXTILE SLITTING MACHINE OPERATOR will continue to follow if needs arise. Assessment: Pt who is independent at baseline. Plan: Pt will d/c home via POV today. No d/c planning needs at this time. TEXTILE SLITTING MACHINE OPERATOR will continue to follow if needs arise. ANGUS Mcneal
[2016-05-19] MEDS ORDERED: METO25TA6 PO (15:22)
--- NOTE | 2016-05-19 15:41 | NUR ---
Discharge Patient given discharge orders. Patient given medication list. Patient IV removed fully intact and asymptomatic. Patient family in room at time of discharge. Patient given hard copy of prescription.
--- NOTE | 2016-05-20 05:40 | PCM.DC.MED ---
Discharge Summary Date of Service May 20, 2016 Dates of Hospitalization Date of Hospital Admission May 17, 2016 at 22:15 Date of Discharge: May 20, 2016 Providers: Admitting Physician: Cathy Rubin DO Primary Care Physician: Cristela East Attending Physician: Cathy Rubin DO Diagnosis at Time of Discharge Diagnosis at Time of Discharge Chest pain, hyponatremia, hyperglycemia (pre-diabetes), chronic afib, tachy moraima syndrome Consultations None Procedures XRay, CTs & MRIs Date of Service: 05/17/161953 PROCEDURE: X-RAY CHEST ONE VIEW, PORTABLE ([id number]) INDICATIONS: resolved chest pain TECHNIQUE: One view of the chest was acquired. COMPARISON: [facility], CR, XR CHEST 1VW (PORTABLE), 10/29/2015, 15: 35. FINDINGS: Surgical changes and devices: None. Lungs and pleura: No pleural effusions or pneumothorax. Lungs are clear. Mediastinum: Mediastinal contours appear normal. Heart size is normal. Bones and chest wall: No suspicious bony lesions. Overlying soft tissues appear unremarkable. IMPRESSION: Acute disease is not seen in a semiupright portable chest. Dictated by: Saeg Salazar M.D. on 05/17/2016 at 20:53 Approved by: Sage Salazar M.D. on 05/17/2016 at 20:54 Other Diagnostics [facility] Diagnostic [place] [address] Patient Name: ERASMO FERNANDEZ MR#: [id number] Location: [facility] [place] Ordering Phys: Silvia Mcclellan DO Date of Service: 05/19/16 1045 PROCEDURE: 1 DAY PHARMACOLOGICAL STRESS TEST Rest and pharmacological stress myocardial perfusion SPECT with gated imaging and ejection fraction RADIOPHARMACEUTICAL: 15.4 mCi Tc-99m tetrafosmin IV at rest and 46.1 mCi Tc-99m tetrafosmin IV at peak effect of pharmacological stress. A [id number] was performed. INDICATIONS: 80 year-old woman with chest pain. The patient has hypertension, hyperlipidemia, and atrial fibrillation. Evaluate myocardial ischemia. TECHNIQUE: Radiopharmaceutical was injected at peak stress test, and also at rest. SPECT images were obtained. SPECT myocardial perfusion images were displayed in short axis, horizontal long axis, and vertical long axis views. Gated images were reviewed using myinfoQQUANT software. COMPARISON: [facility], [place] CARDIAC STRESS TEST PHARM, 10/17/2015 , 11:00. CARDIAC STRESS: A pharmacologic stress test was performed under the supervision of an attending staff, using an infusion of Lexiscan. Hemodynamic data: There is normal blood pressure and heart rate response to pharmacologic stress. Symptoms: The patient denied anginal chest pain. Aminophylline: Not administered. EKG: No diagnostic changes of ischemia; no ectopy. FINDINGS: Raw data: There is good myocardial uptake of radiotracer. No significant motion artifacts. Left ventricle function: Gated images demonstrate normal left ventricular wall thickening. No segmental wall motion abnormalities. No transient ischemic dilation. Left ventricle resting end diastolic volume is normal. Left ventricle stress ejection fraction is greater than 70%; normal range is above 45 %. Myocardial perfusion: There is normal distribution of activity in the right and left ventricular myocardium. No fixed or reversible perfusion defects. Comparison to prior examinations: Compared with the last exam on 10/17/2015, there is no significant change. IMPRESSION: 1. Normal myocardial perfusion images. 2. Normal left ventricular volume and systolic function. 3. No chest pain or diagnostic EKG changes for ischemia. PQRS ATTESTATIONS: Measure 322 - Is this imaging test primarily performed on a low-risk surgery patient for preoperative evaluation within 30 days preceding their low-risk non- cardiac surgery? Low-risk surgery is defined as cardiac or myocardial infarction less than 1%, including (but not limited to) endoscopic procedures, superficial procedures, cataract surgery, and excisional breast surgery: Answer : No Measure 323 - Is this imaging test performed primarily for the monitoring of an asymptomatic patient who had percutaneous coronary intervention on the visit date or within 2 years of the visit date? Answer: No Measure 324 - Is this imaging test performed primarily for the initial detection and risk assessment on an asymptomatic, low coronary heart disease patient? Low CHD risk definition = clinicians should consider the maximum number of available patient factors used to estimate risk based on [place] ( ATP III criteria), typically age, gender, diabetes, smoking status, and use of blood pressure medication, and integrate age appropriate estimates for missing elements, such as LDL or standard blood pressure. Answer: No Dictated by: Maggie Peralta M.D. on 05/19/2016 at 12:21 Approved by: Maggie Peralta M.D. on 05/19/2016 at 12:24 Brief History This is a pleasant 80 Y/O F with a hx of A-fib, hx of tachybradycardia syndrome , sinus bradycardia obesity, COPD, hyperlipidemia, HTN, and TIA 2009, previous history of [id number]-[id number] tobacco use and quit September 2015, who presented to the ED with complaint of sternal/left sided chest pain described as a pressure and rated 5/10 onset 1900 on 05/17/2016. Patient currently is not having chest pain. Patient describes similar episodes have occurred as early as this morning prior to admission. Patients family is present in the room and assisting with history. Patient's family state that the pain seems to always occur while patient is at rest. Patient's family states she was found to be SOB and clenching her chest while she reported chest pressure. Patient states that the chest pain is worsened with exertion. When asked to point where the pain is located she points to the left anterior chest. Patient takes a daily baby aspirin. Of note patient was hospitalized in September 2015 with similar chest pain and was diagnosed at that time with COPD exacerbation. Of note patient has chronic dry cough. Patient is somewhat of a poor historian given her hearing impairment. The current episode of chest pain was described as occurring while patient was at rest watching television and lasting approximately ten-twenty minutes. Associated symptoms include Medel sign, SOB , and diaphoresis. Patient denied radiation of pain, fever, nausea, vomiting, sore throat, productive cough, sick contacts, upper respiratory illness. Reports history of similar episodes previously the most recent occurring this morning . Patient was seen by Dr. Bear her dehydrator tender on 05/14/2016 and had Holter 24-hour Holter monitor placed with the results still pending at this time. Patient's family reporting patient had Doppler ultrasound done of right lower extremity for possible DVT recently that was found to be negative. Patient had a cardiac stress testing done maybe on 10/17/2015 showing normal myocardial perfusion study, hyperdynamic left ventricle function, full low risk myocardial perfusion scan. Echo 10/17/2015 with left ventricular thickness mildly increased, LV systolic function normal, LVEF 65-70%, no focal wall motion irritability, possible impaired early relaxation of left ventricle, no significant valve abnormalities. Vital signs in ED: Temperature 36.5, pulse 73, respiratory rate 28, blood pressure 150/52 with a map of 84, 100% on room air. Repeat vitals pulse 53, respiratory rate 17, blood pressure 138/39 with a map of 72, 100% on room air. Hemogram: Within normal limits Chemistry panel: Hyponatremia at 133, potassium 4.0, hypochloremia at 96, creatinine 1.17 appears to be patient's baseline creatinine, glucose 126, troponin 0.010. Otherwise normal chemistry panel. Chest x-ray showed no acute process. EKG showed sinus bradycardia with a rate of 47, WI interval 224 ms, consistent with first-degree AV block, otherwise normal EKG Hospital Course This is a pleasant 80-year-old female with past medical history of paroxysmal A. fib, tachybradycardia syndrome, sinus bradycardia, obesity, COPD, hyperlipidemia, hypertension, presented to the ED with recurrent episodes of unstable angina type chest pain that does not radiate. Of note patient had initial negative troponin and is currently not complaining of chest pain. He was admitted for acute coronary syndrome rule out, and sinus bradycardia with new-onset first-degree heart block. # Acute onset chest pressure/pain rule out acute coronary syndrome, present on admission, active -She is currently stable and not experiencing any chest pain at this time. -She states that she has experienced similar events in the past. -Patient has history of paroxysmal A. fib that occurred on recent hospitalization for colon cancer resection has not recurred -Patient has a history of sinus bradycardia, and tachybrady syndrome. No pacemaker placed in the past because asymptomatic. -Tachybradycardia syndrome in 2013 with 2 week Zio patch. Conclusion was no need for pacemaker. -She is dehydrator tender is Dr. Bear who recently placed court monitor on [address] Bear was contacted via phone today and he feels this can be followed up as outpatient. -Patient had a cardiac stress testing done maybe on 10/17/2015 showing normal myocardial perfusion study, hyperdynamic left ventricle function, full low risk myocardial perfusion scan. -Echo 10/17/2015 with left ventricular thickness mildly increased, LV systolic function normal, LVEF 65-70%, no focal wall motion irritability, possible impaired early relaxation of left ventricle, no significant valve abnormalities. -EKG, showed sinus bradycardia with a rate of 47, WI interval 224 ms, consistent with first-degree AV block, otherwise normal EKG. -Troponin T 0.010, Will trend Troponin X 3: Negative -Keep O2 Sats keep > 94% -IV fluids 80 mL per hour NS -Held Metoprolol ER 25 mg today due to low heart rate, hold for stress test 05/18 and bradycardia -Continue home Lisinopril 10 mg daily -Morphine for pain control -Nitro SL, Nitro Bee, Nitro Paste (PRN) -Aspirin 325 mg daily -Continuous Cardiac Monitoring/BP monitoring -Labs (Lipid Panel, hgbA1, CBC, CMP, PT/PTT/INR) ordered : Lipid panel shows elevated triglycerides 179 but otherwise fairly WNL, A1c is still pending -Heart Healthy Diet -Cardiology consult: Contacted Dr. Bear and he recommends a repeat stress test. This was done on 05/19/16 and was negative. Acute kidney injury, acute, POA - Ruled out/inactive diagnosis. Is it may not be acute injury as her creatinine was 1.16-1.17 9 is available in our system # First-degree heart block, and sinus bradycardia, post on admission, active - As seen on EKG today - Continue cardiac monitoring as above # Hyponatremia with hypochloremia, present on admission, active - Normalized this a.m. - IV normal saline at 80 mL per hour maintenance # Hyperglycemia, present on admission, active - Hemoglobin A1c =6.2 Prediabetic range. Because of her age, this A1C is permissive. We will leave this to the PCP whether they feel she needs metformin. # Bilateral calf pain, present on admission, active - Patient complains of history of chronic lower extremity cramps - Positive Homans sign on the left - Positive tenderness to palpation of the posterior calf bilaterally - Patient's family reporting that patient had right lower extremity Doppler ultrasound that was negative recently - We will order d-dimer and if positive will get bilateral duplex ultrasound of the lower extremity: This was ordered and negative for DVT -- Also ordered a left foot x-ray which showed degenerative disease but no acute fractures. Patient is given small dose of Gabapentin for d/c for neuropathic pain. PCP to follow up on how her pain improves. On the day of d/c, she had no pain in L foot. We request that PCP follow up on any malignancy work up she may need as she does have colon cancer hx as some times this could cause one leg more edema than the other (in her case L>R). Chronic problems # Candidate for intertrigo, present on admission, active - Perineal area with significant odor and moist appearing rash - Patient used home medication from PCP # Chronic eczema - Patient used home medication from PCP History of paroxysmal atrial fibrillation -Continuous cardiac monitoring as stated previously -No further episodes of A. fib recorded since was diagnosed during hospitalization September 2015 History of obesity History of right-sided colon cancer COPD - Currently in no respiratory distress, O2 sats in the 100% on room air Hyperlipidemia, - Continue home atorvastatin Hypertension - Was held today due to low heart rate tachybradycardia syndrome - Patient has 24-hour Holter outpatient monitoring system pending result Sinus bradycardia - Patient has 24-hour Holter outpatient monitoring system pending result Sinus bradycardia History of chest pain Disposition: Admitted to in patient service for observation and further workup, secondary to severity of presenting symptoms, treatment plan, complexity of clinical work up, and risk of adverse events. CODE STATUS: Chest compressions okay however DO NOT INTUBATE PCP: Cristela RIZZO DVT PE prophylaxis: SCD's/Enoxiparin/SubQ heparin Q8H Contact: Patient lives with her daughter Jennifer Martin who is does need a power of trial attorney for number [phone] Exam Vital Signs (Last) Date Time Temp Pulse Resp B/P Pulse Ox O2 Delivery O2 Flow Rate FiO2 05/19/16 09:21 65 05/19/16 04:54 36.6 18 157/74 100 Room Air Exam General: NAD HEENT: NCAT Eyes: [place] conjunctivae. No ptosis, PERRL Neck: No masses, trachea midline, no thyromegaly Lungs: CTA with normal respiratory effort CV: RRR, no murmurs/rubs/gallops GI: Soft, non-tender with no hepatosplenomegaly MSK: Patient has knobby knees and tender to touch in the lower LE. Left foot is somewhat more tender than the right. Neg for erythema and warmth. Vasc: Unable to palpate dorsalis pedis. Skin: Warm and dry. 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, being followed by her PCP Psych:appropriate affect Test 05/17/16 20:25 05/17/16 22:51 05/17/16 23:26 05/18/16 01:31 Hemoglobin A1c 6.2% (4.8-5.6) Total Bilirubin 0.4mg/dL (0.0-1.2) Aspartate Amino Transf (AST/SGOT) 15U/L (0-50) Alanine Aminotransferase (ALT/SGPT) 11U/L (0-32) Alkaline Phosphatase 113U/L (25-165) Total Protein 7.2g/dL (6.4-8.4) Albumin 3.8g/dL (3.4-5.0) Hold Colon Top Tube Received (Received) Magnesium Level 2.1mg/dL (1.6-2.6) Thyroid Stimulating Hormone (TSH) 2.940uIU/mL (0.450-4.500) Prothrombin Time 11.1sec (8.1-12.5) Prothromb Time International Ratio 1.04ratio Activated Partial Thromboplast Time 27.3sec (22.8-33.0) D-Dimer < 0.50mg/L FEU (<0.50) Hold Urine Received (Received) Test 05/18/16 05:46 05/18/16 08:40 White Blood Count 6.0th/mm3 (3.8-10.1) Red Blood Count 4.74mil/mm3 (3.90-5.20) Hemoglobin 13.1g/dL (12.0-15.6) Hematocrit 40.4% (35.0-46.0) Mean Corpuscular Volume 85.2fL (81-100) Mean Corpuscular Hemoglobin 27.6pg (27.0-35.0) Mean Corpuscular Hemoglobin Concent 32.4% (32.0-37.0) Red Cell Distribution Width 14.5% (12.3-15.4) Platelet Count 202bil/L (150-400) Neutrophils (%) (Auto) 66.9% (40-74) Lymphocytes (%) (Auto) 22.5% (14-46) Monocytes (%) (Auto) 6.8% (4-12) Eosinophils (%) (Auto) 3.1% (0-5) Basophils (%) (Auto) 0.5% (0-3) Sodium Level 142mEq/L (134-144) Potassium Level 4.1mEq/L (3.5-5.2) Chloride Level 103mEq/L (97-108) Carbon Dioxide Level 24mmol/L (18-29) Blood Urea Nitrogen 16mg/dL (8-27) Creatinine 1.16mg/dL (0.57-1.00) Estimat Glomerular Filtration Rate 65mL/min (>59) Glucose Level 105mg/dL (60-99) Calcium Level 9.7mg/dL (8.5-10.1) Triglycerides Level 173mg/dL (0-149) Cholesterol Level 127mg/dL (100-199) LDL Cholesterol, Calculated 57.400mg/dL (0-99) VLDL Cholesterol 34.600mg/dL HDL Cholesterol 35mg/dL (>39) Cholesterol/HDL Ratio 3.63 (0.0-4.4) Troponin T < 0.010ug/L (0.0-0.011) Discharge Medications Discharge Medications Aspirin Chew (Aspirin Chew) 81 Mg Chew 81 MG PO DAILY (Reported) Atorvastatin (Lipitor) 40 Mg Tablet 40 MG PO HS (Reported) Cholecalciferol (Vitamin D3) (Vitamin D) 1,000 Unit Tablet 1,000 UNIT PO DAILY ( Reported) Hydrochlorothiazide (Hydrochlorothiazide) 25 Mg Tablet 12.5 MG PO QAM (Reported ) Lisinopril (Zestril) 10 Mg Tablet 10 MG PO DAILY Prescribed by: Danielle STEPHENS MD Metoprolol Tartrate (Metoprolol Tartrate) 25 Mg Tablet 12.5 MG PO BID Prescribed by: SILVIA MCCLELLAN DO Pantoprazole DR (Protonix) 40 Mg Tablet 40 MG PO DAILYAC Prescribed by: CLAUDE HAILE As needed Acetaminophen (Acetaminophen) 325 Mg Tablet 650 MG PO Q4H PRN PRN For Fever ( Reported) Albuterol HFA (Proair HFA) 8.5 Gm Hfa.aer.ad 2 PUFFS INHALATION Q4H PRN PRN For Shortness of Breath (Reported) Additional med instructions Please take Gabapentin 100 mg as needed for nueropathic pain in left leg Start lisinopril 10 mg QD Take Metoprolol Tartrate 12.5 mg BID, Stop Metoprolol Succinate 25 mg. Follow up with PCP about the Left foot pain Follow up with your dehydrator tender on Holter results when you see him in 2 weeks for f/u Followup Plan Follow-up plan F/U with residency clinic in 1-2 weeks. F/U with Cardiology / Dr. Paul in 2 weeks. Discharge Diet: Low fat, Low Sodium, Heart Healthy, Diabetic Silvia Mcclellan DO May 20, 2016 05:40
== END 2016-05-19 15:49 | disposition home or self-care (01) ==
LOC: SED 19:52 → MPC 22:15
PROVIDERS: ADMIT Internal Medicine; ATTEND Internal Medicine
DX: R07.89 Other chest pain (principal); E87.1 Hypo-osmolality and hyponatremia; E87.8 Other disorders of electrolyte and fluid balance, not elsewhere classified; I44.0 Atrioventricular block, first degree; I48.2 Chronic atrial fibrillation; I49.5 Sick sinus syndrome; I10 Essential (primary) hypertension; R73.03 Prediabetes; E66.01 Morbid (severe) obesity due to excess calories; Z68.41 Body mass index [BMI] 40.0-44.9, adult; E78.5 Hyperlipidemia, unspecified; J44.9 Chronic obstructive pulmonary disease, unspecified; M79.662 Pain in left lower leg; M79.661 Pain in right lower leg; L30.4 Erythema intertrigo; L30.9 Dermatitis, unspecified; Z87.891 Personal history of nicotine dependence; Z85.038 Personal history of other malignant neoplasm of large intestine; Z86.73 Personal history of transient ischemic attack (TIA), and cerebral infarction without residual deficits; Z79.82 Long term (current) use of aspirin; Z90.49 Acquired absence of other specified parts of digestive tract

== ENCOUNTER 2016-07-31 13:59 | Emergency (ER) | payer MEDICAID ==
[~2016-07-31 13:59] MED LIST changes: -ACET-1890 PO; +ACET325T51 PO; +ALBU8.5H2 INHALATION; +ASPI81TA3 PO; -AZIT250T4 PO; -CEPH-512 PO; +CHOL100043 PO; -HYDR12.5 PO; +HYDR25TA4 PO; +LIP40 PO; +METO25TA6 PO; -METO50TA7 PO; -PRE20 PO
[2016-07-31 14:24] VITALS: BP 148/113; PULSE 106; RESP 24
[2016-07-31] MEDS ORDERED: Nitroglycerin 2% 1 Gm Ointment TOPICAL ONE (14:25)
[2016-07-31] MEDS ORDERED: Ondansetron 2 mg/mL 2 mL Inj IVPUSH PRN (14:40)
[2016-07-31 15:03] LABS: BASOPHILS % (AUTO) 0.3 % (0-3); EOSINOPHILS % (AUTO) 1.5 % (0-5); MONOCYTES % (AUTO) 6.9 % (4-12); Mean Corpuscular Hemoglobin 27.3 pg (27.0-35.0); Mean Corpuscular Volume 84.8 fL (81-100); NEUTROPHILS % (AUTO) 72.3 % (40-74); Platelet Count 215 bil/L (150-400)
--- NOTE | 2016-07-31 15:08 | DRSVH ---
PROCEDURE: X-RAY CHEST ONE VIEW, PORTABLE ([id number]) INDICATIONS: Chest pain TECHNIQUE: One view of the chest was acquired. COMPARISON: [facility], CR, XR CHEST 1VW (PORTABLE), 05/17/2016, 20:28. FINDINGS: Surgical changes and devices: edge glue machine tender leads are present. Lungs and pleura: No pleural effusions or pneumothorax. Lungs are clear. Mediastinum: Mediastinal contours appear normal. Heart size is normal. Bones and chest wall: No suspicious bony lesions. Overlying soft tissues appear unremarkable. IMPRESSION: No acute disease is seen semiupright portable chest. Dictated by: Sage Salazar M.D. on 07/31/2016 at 15:05 Approved by: Sage Salazar M.D. on 07/31/2016 at 15:06
--- NOTE | 2016-07-31 15:09 | ED.REPORT ---
HPI-Chest Pain 40 and Over Date of Service Jul 31, 2016 ED Provider: Romeo Buitrago DO Pt is a 81 year old female with a history of COPD, HTN, TIA, and hyperlipidemia who presents to the ED via EMS complaining of sharp right-sided, chest pain onset this morning at 11:00 while at rest. The pain does not radiate. She c/o chills, diaphoresis, dizziness, leg cramps, RLQ pain, bilateral arm pain, and tongue numbness. The arm pain started in her left arm near her shoulder, then moved to her whole right arm for 20 minutes. She denies neck pain, jaw pain, nausea, vomiting, and shoulder pain. Nursing Notes Stated Complaint: CHEST PAIN Chief Complaint: Chest Pain Nursing Notes Reviewed: Yes Allergies: Coded Allergies: No Known Allergies (Verified , 07/31/16) Scheduled Aspirin Chew (Aspirin Chew) 81 Mg Chew 81 MG PO DAILY Atorvastatin (Lipitor) 40 Mg Tablet 40 MG PO HS Cholecalciferol (Vitamin D3) (Vitamin D) 1,000 Unit Tablet 1,000 UNIT PO DAILY Hydrochlorothiazide (Hydrochlorothiazide) 25 Mg Tablet 12.5 MG PO QAM Lisinopril (Zestril) 10 Mg Tablet 10 MG PO DAILY Metoprolol Tartrate (Metoprolol Tartrate) 25 Mg Tablet 12.5 MG PO BID Pantoprazole DR (Protonix) 40 Mg Tablet 40 MG PO DAILYAC Scheduled PRN Acetaminophen (Acetaminophen) 325 Mg Tablet 650 MG PO Q4H PRN PRN For Fever Albuterol HFA (Proair HFA) 8.5 Gm Hfa.aer.ad 2 PUFFS INHALATION Q4H PRN PRN For Shortness of Breath General Time Seen by MD: 15:08 Chief Complaint Chest pain Hx Obtained From: Patient Arrived By: Walk-in Sudden in Onset?: Yes Onset Occurred: 5 - 8 hours ago Symptom Duration: Since onset Location: : Chest right Quality: Painful, Sharp Severity: Current: Moderate Severity: Maximum: Moderate Recent Healthcare: No recent doctor visit Similar Sx Previous: No Past Medical History Past Medical History Notes: Admit October 2015 for shortness of breath Past Medical History History of paroxysmal atrial fibrillation History of possible TIA History of obesity History of right-sided colon cancer Reports: COPD, Hyperlipidemia, Hypertension, Transient ischemic attack Past Surgical History History of exploratory laparotomy for perforated small bowel which occurred during a ventral hernia repair Multiple incision and drainage of fat necrosis post laparotomy Right-sided colectomy for obstructing colon cancer Reports: Cholecystectomy, Inguinal hernia repair, Tonsillectomy Smoking History Former Smoker Social History Alcohol Use: Denies alcohol use Drug Use: Denies drug use Other Social History: Good social support Ambulatory Status Cane Review of Systems + Leg cramps Constitutional: Reports: Chills Cardiovascular: Reports: Chest pain GI: Reports: Abdominal pain, Denies: Nausea, Vomiting Musculoskeletal: Reports: Extremity pain, Denies: Back pain, Neck pain Skin: Reports Diaphoresis (Cold) Neurologic: Reports: Dizziness Complete sys rev & neg: except as marked. Physical Exam Initial Vital Signs Vital Signs (First) Date Time Temp Pulse Resp B/P Pulse Ox O2 Delivery O2 Flow Rate FiO2 07/31/16 14:24 106 24 148/113 07/31/16 19:16 36.6 100 Room Air Initial VS: Reviewed ENT: Mucous membranes moist, Conjunctiva normal, No scleral icterus Neck: Supple, Full range of motion Extremities: Vascular intact, Neuro intact Skin: Warm, Dry, No cyanosis Neurologic: Alert, Oriented, Nonfocal Psychiatric: Mood/affect normal, Behavior normal General/Constitutional: Awake, Alert, Cooperative Respiratory / Chest: Atraumatic, Breath sounds NL, Breath sounds = bilat Cardiovascular: Heart rate NL, Regular rhythm Heart sounds are distant Abdomen: Atraumatic, Soft, Non-tender Back: Non-tender 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 Lower Extremity / Pelvis / MS: Neurologic intact, Vascular intact Trace lower extremity edema Interpretation & Diagnostics Lab Results Interpretation Result Diagram: 07/31/16 1458 07/31/16 1458 Test 07/31/16 14:58 07/31/16 17:30 White Blood Count 6.9th/mm3 (3.8-10.1) Red Blood Count 4.55mil/mm3 (3.90-5.20) Hemoglobin 12.4g/dL (12.0-15.6) Hematocrit 38.6% (35.0-46.0) Mean Corpuscular Volume 84.8fL (81-100) Mean Corpuscular Hemoglobin 27.3pg (27.0-35.0) Mean Corpuscular Hemoglobin Concent 32.1% (32.0-37.0) Red Cell Distribution Width 15.1% (12.3-15.4) Platelet Count 215bil/L (150-400) Neutrophils (%) (Auto) 72.3% (40-74) Lymphocytes (%) (Auto) 18.7% (14-46) Monocytes (%) (Auto) 6.9% (4-12) Eosinophils (%) (Auto) 1.5% (0-5) Basophils (%) (Auto) 0.3% (0-3) Sodium Level 140mEq/L (134-144) Potassium Level 3.8mEq/L (3.5-5.2) Chloride Level 102mEq/L (97-108) Carbon Dioxide Level 23mmol/L (18-29) Blood Urea Nitrogen 11mg/dL (8-27) Creatinine 1.18mg/dL (0.57-1.00) Estimat Glomerular Filtration Rate 63mL/min (>59) Glucose Level 119mg/dL (60-99) Calcium Level 9.4mg/dL (8.5-10.1) Magnesium Level 2.1mg/dL (1.6-2.6) Total Bilirubin 0.3mg/dL (0.0-1.2) Aspartate Amino Transf (AST/SGOT) 11U/L (0-50) Alanine Aminotransferase (ALT/SGPT) 10U/L (0-32) Alkaline Phosphatase 132U/L (25-165) Total Protein 6.6g/dL (6.4-8.4) Albumin 3.8g/dL (3.4-5.0) Hold Colon Top Tube Received (Received) Troponin T < 0.010ug/L (0.0-0.011) ECG Interpretation ECG Interpretation: Sinus rhythm with a rate of 89. No ST changes. When compared with previous, her heart rate is faster. Time: 14:25 Interpreted by: ED physician X-Ray Chest Interpretation Chest Xray Interpretation: IMPRESSION: No acute disease is seen semiupright portable chest. Dictated by: Sage Salazar M.D. on 07/31/2016 at 15:05 View: Portable, 1 view Interpretation / Wet Read by: Interpret - Radiologist Re-Eval/Medical Decision Med Decision/Clinical Course 81-year-old female with a history of paroxysmal atrial fibrillation, history of TIA, tachy-moraima syndrome, hypertension, hyperlipidemia, and COPD presenting with chest pain onset this morning at 11 AM, starting in the left arm for 20 minutes and then switching to the right arm and right chest. She had a recent Maria Del Rosario- scan on 05/19/16 that returned normal including a normal ejection fraction. She had a zio patch placed on 05/14/16 that also returned showing sinus rhythm with rare PACs, and a short run of SVT. She had a EF of 65-70% with echo performed 10/17/15 in fact she was just seen 07/14/16 by her blanket cutter hand Dr. Paul who noted that her symptoms are under good control. She arrived at the emergency department she did have some residual chest pain that was relieved with Nitropaste. A 3 hour troponin was ordered and was negative. I considered pulmonary embolus as a potential diagnosis, however the patient did not ever complain of shortness of breath and denied this explicitly. She has a normal lower extremity examination without edema. Her postural vital signs were negative. She was not tachycardic other than her initial set of vitals, but throughout her 5 hours of stay her pulse was in the 70s. She was never hypoxic. I advised that she follow-up with her PCP to consider other etiologies for the pain and that the dangers/life-threatening causes were ruled out today. Her grandson notes that when this pain onset, she was wheezing and this resolved within about a half hour of a breathing treatment which she received prior to coming to the ER. She has no signs of COPD exacerbation. Source of Hx: Old records, Family Time of Eval: 17:12 Patient Status: Condition resolved Re-Evaluation/Progress Note: Pt rechecked. Informated pt of results and need to do an additional blood test. All questions were answered. Time of Eval: 18:36 Re-Evaluation/Progress Note: Pt rechecked. Informed pt of plan for discharge. Pt understands and agrees with plan for discharge. F/U instructions and RTER warnings given. All questions addressed. Time of Eval: 19:03 Re-Evaluation/Progress Note: Pt rechecked. Pt reported some concerns regarding her symptoms. All questions were answered. Counseled Regarding: Diagnosis, Lab results, Need for follow-up, When/why to return to ED Discharge & Departure Primary Impression: Chest pain Chest pain type: unspecified Qualified Code: R07.9 - Chest pain, unspecified Additional Impression: Chronic obstructive pulmonary disease COPD type: unspecified COPD Qualified Code: J44.9 - Chronic obstructive pulmonary disease, unspecified Ruled Out: Acute coronary syndrome Disposition: Home Discharge Condition All VS Reviewed: Yes Condition: Stable Patient Instructions: COPD (Chronic Obstructive Pulmonary Disease) (ED) Additional Instructions: Thank you for entrusting us with your care Your labs, EKG, and workup were very reassuring with no signs of a heart attack. The nebulizer you were given prior to coming to the ER may have helped with the wheezing and chest pain that you were having. It is possible that this was the cause of your chest pain. Follow up with your primary care provider next week. If you have symptoms like this again, use or nebulizer and see if symptoms to subside. Return to the emergency department for any new or worsening symptoms. Referrals: Cristela East (PCP) Eder Attestation Portions of this note were transcribed by Madhuri Sapp. I, Dr. Buitrago personally performed the history, physical exam and medical decision-making; I reviewed and confirmed the accuracy of the information in the transcribed note. Signed by: Eder Caro, 07/31/16 and 17:50. copies to: Cristela East Gary R DO Jul 31, 2016 15:09 Madhuri Lombardi Jul 31, 2016 15:21
[2016-07-31 15:59] LABS: TROPONIN T < 0.010 ug/L (0.0-0.011)
[2016-07-31 16:09] LABS: Magnesium 2.1 mg/dL (1.6-2.6)
[2016-07-31 18:40] VITALS: BP 129/51; PULSE 77; RESP 14
[2016-07-31 19:16] VITALS: BP 134/77; PULSE 66; RESP 24; O2SAT 100
[2016-07-31 19:17] VITALS: BP 121/70; PULSE 64; RESP 22; O2SAT 100
[2016-07-31 19:18] VITALS: BP 121/70; PULSE 64; RESP 22; O2SAT 100
== END 2016-07-31 19:18 | disposition home or self-care (01) ==
LOC: SED 13:59 → EDBD 13:59 → SED 19:18
DX: R07.9 Chest pain, unspecified (principal); J44.9 Chronic obstructive pulmonary disease, unspecified; I10 Essential (primary) hypertension; E78.5 Hyperlipidemia, unspecified; Z86.73 Personal history of transient ischemic attack (TIA), and cerebral infarction without residual deficits; Z79.82 Long term (current) use of aspirin; Z87.891 Personal history of nicotine dependence
CPT/HCPCS: 36415; 71010; 80053; 83735; 84484; 85025; 93005; 96374; 99285; J2270

== ENCOUNTER 2016-08-02 18:20 | Emergency (ER) | payer MEDICAID ==
[2016-08-02 18:43] VITALS: BP 110/66; PULSE 85; RESP 25; O2SAT 100
--- NOTE | 2016-08-02 19:27 | ED.REPORT ---
HPI-Dyspnea / Wheezing Date of Service Aug 02, 2016 ED Provider: Ida Triplett History of Present Illness: c/o pain on right side. Still with shortness of breath. Dr. [facility]. . no vomiting. nothing for the pain. inhaler nebulizers no help. not on o2 at home. face numbness and tingling along with feet pain from leg swelling Seen yesterday at the ER Nursing Notes Stated Complaint: SOB Chief Complaint: Respiratory Complaints Nursing Notes Reviewed: Yes Allergies: Coded Allergies: No Known Allergies (Verified , 08/02/16) Scheduled Aspirin Chew (Aspirin Chew) 81 Mg Chew 81 MG PO DAILY Atorvastatin (Lipitor) 40 Mg Tablet 40 MG PO HS Cholecalciferol (Vitamin D3) (Vitamin D) 1,000 Unit Tablet 1,000 UNIT PO DAILY Hydrochlorothiazide (Hydrochlorothiazide) 25 Mg Tablet 12.5 MG PO QAM Lisinopril (Zestril) 10 Mg Tablet 10 MG PO DAILY Metoprolol Tartrate (Metoprolol Tartrate) 25 Mg Tablet 12.5 MG PO BID Pantoprazole DR (Protonix) 40 Mg Tablet 40 MG PO DAILYAC Scheduled PRN Acetaminophen (Acetaminophen) 325 Mg Tablet 650 MG PO Q4H PRN PRN For Fever Albuterol HFA (Proair HFA) 8.5 Gm Hfa.aer.ad 2 PUFFS INHALATION Q4H PRN PRN For Shortness of Breath General Time Seen by MD: 19:23 Chief Complaint Shortness of breath Hx Obtained From: Daughter Sudden in Onset?: No Past Medical History Past Medical History Notes: Admit October 2015 for shortness of breath Past Medical History History of paroxysmal atrial fibrillation History of possible TIA History of obesity History of right-sided colon cancer Reports: COPD, Hyperlipidemia, Hypertension, Transient ischemic attack Past Surgical History History of exploratory laparotomy for perforated small bowel which occurred during a ventral hernia repair Multiple incision and drainage of fat necrosis post laparotomy Right-sided colectomy for obstructing colon cancer Reports: Cholecystectomy, Inguinal hernia repair, Tonsillectomy Smoking History Former Smoker Social History Alcohol Use: Denies alcohol use Drug Use: Denies drug use Other Social History: Good social support Ambulatory Status Cane Review of Systems Basic Review of Systems Eyes: Vision NL, No discharge Neurologic: NL mental status, No weakness, No numbness Physical Exam Initial Vital Signs Vital Signs (First) Date Time Temp Pulse Resp B/P Pulse Ox O2 Delivery O2 Flow Rate FiO2 08/02/16 18:43 36.5 85 25 110/66 100 Initial VS: Reviewed, Vital signs normal Head / Eyes: Atraumatic, Normocephalic, PERRL ENT: Mucous membranes moist, Conjunctiva normal, No scleral icterus Abdomen / GI: Soft, Non-tender, No guarding, No rebound, No distention Back: No CVA tenderness Lymphatic: No lymphadenopathy Extremities: Vascular intact, Neuro intact, No swelling, No tenderness Skin: Warm, Dry, No cyanosis Neurologic: Alert, Oriented, Nonfocal Psychiatric: Mood/affect normal, Behavior normal, Normal thought content General/Constitutional: Awake, Alert Distress / Hydration: Positive: Distress moderate Appearance / Presentation: Positive: Frail patient moaning and rocking back and forth Neck: Atraumatic, Supple, No meningismus Respiratory / Chest: Atraumatic Diminished Breath Sounds: Positive: Decreased bilateral Cardiovascular: Heart rate NL, Regular rhythm, Heart sounds NL Abdomen: Atraumatic, Soft, Non-tender bilateral pitting edema on lower extremities Interpretation & Diagnostics Lab Results Interpretation Result Diagram: 08/02/162024 Test 08/02/16 18:33 08/02/16 20:25 Urine Color Straw (YELLOW) Urine Appearance Clear (CLEAR,HAZY) Urine pH 5.5 (5.0-8.0) Urine Specific [place] <1.005 (1.003-1.035) Urine Protein Negativemg/dL (NEG,TRACE) Urine Glucose (UA) Negativemg/dL (NEGATIVE) Urine Ketones Negativemg/dL (NEGATIVE) Urine Occult Blood Negative (NEGATIVE) Urine Nitrite Negative (NEGATIVE) Urine Bilirubin Negative (NEGATIVE) Urine Urobilinogen Normalmg/dL (NORMAL) Urine Leukocyte Esterase Trace (NEGATIVE) Urine RBC 0-2/hpf (0-2) Urine WBC 6-10/hpf (0-5) Urine Epithelial Cells Moderate/hpf (NONE-MOD) Urine Crystals None seen (NONE SEEN) Urine Bacteria Few/hpf (NONE-FEW) Urine Hyaline Casts None/lpf (NONE) Urine Granular Casts None seen (NONE SEEN) Urine Waxy Casts None seen (NONE SEEN) Urine Red Blood Cell Casts None seen (NONE SEEN) Urine White Blood Cell Casts None seen (NONE SEEN) Urine Mucus None seen (None Seen) Urine Trichomonas None seen (NONE SEEN) Urine Yeast None (NONE SEEN) Urinalysis Comment None Urine Culture Reflexed Indicated White Blood Count 8.0th/mm3 (3.8-10.1) Red Blood Count 4.48mil/mm3 (3.90-5.20) Hemoglobin 12.4g/dL (12.0-15.6) Hematocrit 37.7% (35.0-46.0) Mean Corpuscular Volume 84.2fL (81-100) Mean Corpuscular Hemoglobin 27.7pg (27.0-35.0) Mean Corpuscular Hemoglobin Concent 32.9% (32.0-37.0) Red Cell Distribution Width 15.4% (12.3-15.4) Platelet Count 224bil/L (150-400) Neutrophils (%) (Auto) 71.6% (40-74) Lymphocytes (%) (Auto) 19.1% (14-46) Monocytes (%) (Auto) 6.7% (4-12) Eosinophils (%) (Auto) 2.2% (0-5) Basophils (%) (Auto) 0.2% (0-3) Re-Eval/Medical Decision Med Decision/Clinical Course 81 year old female presents for evualation of SOB. Pateint seen yesterday and ruled out for cardiac and sent home. No sign of DC. labs and imaging pending. Care of patient turned over to Dr. Marshall for disposition Discharge & Departure Referrals: Cristela East (PCP) Ida Triplett Aug 02, 2016 19:27
[2016-08-02] MEDS ORDERED: Albuterol 2.5 mg/3 mL Inhalation Solution NEB ONE (19:40)
[2016-08-02 19:58] LABS: APPEARANCE,URINE CLEAR (CLEAR,HAZY); COLOR,URINE STRAW (YELLOW); OCCULT BLOOD,URINE NEGATIVE (NEGATIVE); PH,URINE 5.5 (5.0-8.0); UROBILINOGEN,URINE NORMAL (NORMAL)
[2016-08-02 20:44] LABS: BASOPHILS % (AUTO) 0.2 % (0-3); EOSINOPHILS % (AUTO) 2.2 % (0-5); MONOCYTES % (AUTO) 6.7 % (4-12); Mean Corpuscular Hemoglobin 27.7 pg (27.0-35.0); Mean Corpuscular Volume 84.2 fL (81-100); NEUTROPHILS % (AUTO) 71.6 % (40-74); Platelet Count 224 bil/L (150-400)
[2016-08-02 22:00] VITALS: BP 120/72; PULSE 102
[2016-08-02 22:17] LABS: TROPONIN T 0.01 ug/L (0.0-0.011)
[2016-08-02] MEDS ORDERED: HYDROmorphone 0.5 mg/0.5 mL iSecure Syringe IVPUSH ONE (22:50)
[2016-08-02] MEDS ORDERED: Phytonadione (Adult) 10 MG in Dextrose 5%-Pha MIX 50 ML IV ONE (23:10)
[2016-08-02 23:30] VITALS: BP 116/68; PULSE 86; RESP 14; O2SAT 98
[2016-08-03] MEDS ORDERED: HYDR-4003 PO (01:09)
[2016-08-03] MEDS ORDERED: DOXY-232 PO (01:14)
[2016-08-03] MEDS ORDERED: HYDROcodone-APAP 5-325 mg Tablet PO ONE (01:25)
[2016-08-03 01:52] VITALS: BP 118/46; PULSE 88; O2SAT 100
--- NOTE | 2016-08-03 08:18 | DRSVH ---
PROCEDURE: X-RAY CHEST, TWO VIEWS ([id number]) INDICATIONS: sob back/chest pain TECHNIQUE: 2 views of the chest were acquired. COMPARISON: [facility], CT, CT ANGIO CHEST PE, 08/02/2016, 23:43. [facility] , CR, XR CHEST 1VW (PORTABLE), 05/17/2016, 20:28. [facility], CR, XR CHEST 1VW (PORTABLE) , 07/31/2016, 14:32. FINDINGS: Surgical changes and devices: None. Lungs and pleura: No pleural effusions or pneumothorax. Grossly unchanged bibasilar scarring/atelect asis since 07/31/16.. Mediastinum: Mediastinal contours are normal. Heart size is normal. Bones and chest wall: No suspicious bony abnormalities. Soft tissues appear unremarkable. IMPRESSION: No new consolidation or acute disease. Bibasilar presumed scarring/atelectasis with unchanged appearance Dictated by: Pavel Lewis M.D. on 08/03/2016 at 8:15 Approved by: Pavel Lewis M.D. on 08/03/2016 at 8:17
--- NOTE | 2016-08-03 10:21 | DRSVH ---
PROCEDURE: CT BRAIN WITHOUT CONTRAST ([id number]) INDICATIONS: Possible seizure. TECHNIQUE: Noncontrast 4.5 mm thick angled axial sections acquired from the foramen magnum to the vertex, with c oronal reformats. COMPARISON: [facility], CT, CT BRAIN WO CON, 09/30/2015, 15:34. FINDINGS: Image quality: Excellent. CSF spaces: Basal cisterns are patent. No extra-axial fluid collections. The ventricles are symmet noah in size and shape. Brain: No intracranial bleeds or masses. There is cerebral volume loss for age, with resultant vent ricular and sulcal prominence. There are periventricular and deep white matter chronic small vessel ischemic changes. Old right occipital infarct is noted. Old, small, anterior left fajardo radiata lacu omar infarct noted. There is intracranial internal carotid artery atherosclerosis. Skull and face: Calvarium and visualized facial bones appear intact, without suspicious lesions. Sinuses: Visualized sinuses and mastoids are clear. IMPRESSION: No acute intracranial disease process. Dictated by: Esther Wood MD, PhD on 08/03/2016 at 10:11 Approved by: Esther Wood MD, PhD on 08/03/2016 at 10:19
--- NOTE | 2016-08-03 10:30 | DRSVH ---
PROCEDURE: CT ANGIO CHEST PULMONARY EMBOLISM ([id number]) INDICATIONS: sob TECHNIQUE: After the administration of intravenous contrast, 2 mm thick sections acquired from the pulmonary api marika to the posterior costophrenic angles. 3-dimensional maximum intensity projection (MIP) coronal a nd sagittal reformats were then acquired through the thorax. For radiation dose reduction, the follo wing was used: automated exposure control, adjustment of mA and/or kV according to patient size. COMPARISON: None. FINDINGS: Image quality: Excellent. Pulmonary arteries: Pulmonary arteries are normal in size, and demonstrate no intraluminal filling d efects to suggest central pulmonary embolism. Lungs and pleura: Dependent atelectasis noted. No pleural effusions or pneumothorax. Central and per ipheral airways are patent. Mediastinum: Heart size is normal, without pericardial effusion. Atherosclerotic calcifications are noted in the aorta, great vessels and the coronary vasculature. No mediastinal or hilar adenopathy. Thoracic aorta is normal in caliber and enhancement. Esophagus is normal in caliber, without hiatal hernia. Bones and chest wall: No suspicious bony lesions. Ribs and thoracic spine appear intact throughout. Spine degenerative disc disease and facet arthropathy. Thyroid gland is within normal limits where v isualized. No axillary or supraclavicular adenopathy. Abdomen: Visualized upper abdominal solid organs appear normal in the early arterial phase of enhanc ement. IMPRESSION: No pulmonary embolus. Dictated by: Esther Wood MD, PhD on 08/03/2016 at 10:21 Approved by: Esther Wood MD, PhD on 08/03/2016 at 10:28
== END 2016-08-03 02:18 | disposition home or self-care (01) ==
LOC: SED 18:20
DX: M79.605 Pain in left leg (principal); L03.116 Cellulitis of left lower limb; I10 Essential (primary) hypertension; E78.5 Hyperlipidemia, unspecified; Z87.891 Personal history of nicotine dependence; Z85.038 Personal history of other malignant neoplasm of large intestine
CPT/HCPCS: 36415; 70450; 71020; 71275; 80053; 81000; 83605; 83880; 84484; 85025; 87040; 87077; 87086; 87088; 87186; 93005; 96374; 96375; 96376; 99285; J1170; J2060; Q9967

== ENCOUNTER 2016-09-02 08:12 | Day surgery (SDC) | payer MEDICAID ==
[~2016-09-02] VITALS: Ht 152.4 cm; Wt 102.0 kg
[~2016-09-02 08:12] MED LIST changes: +ASPI-973 PO; -ASPI81TA3 PO; -CHOL100043 PO; +CHOL500050 PO; +FLUT12AE4 IH; +HYDR12.55 PO; -HYDR25TA4 PO; -LISI-610 PO; +LISI10TA PO; -METO25TA6 PO; -PANT40TA2 PO; +PANT40TA3 PO
[2016-09-02 08:38] VITALS: BP 138/68; PULSE 84; RESP 16; O2SAT 100
[2016-09-02] MEDS ORDERED: fentaNYL-PF 50 mCg/mL 2 mL Inj ONE (08:43)
[2016-09-02] MEDS: Lactated Ringer's 1,000 ML IV ONE ×2 (09:04→09:16)
[2016-09-02 09:38] VITALS: BP 115/57; PULSE 71; RESP 14; O2SAT 98
--- NOTE | 2016-09-02 09:42 | PCM.HPANE ---
Patient Data Surgeon Admitting Provider: Attending Provider:Kenrick Camejo MD Primary Care Physician:Cristela East Other Provider:Bernice Killian Anesthesia Reason for Visit Colon Cancer Ht/WT & BMI Body Mass Index Allergies Coded Allergies: No Known Allergies (Verified , 08/02/16) Past Anesthesia History Anesthesia History: Denies:: Abnormal Airway, Anesthesia Reactions, Difficult Intubation, Fam Anesthesia Reaction, Fam Malignant Hypertherm, Malignant Hyperthermia Diabetes History Hx Diabetes?: No MRSA MRSA: No Medications Reported Medications Acetaminophen 325 Mg Mctekt496 Mg PO Q4H PRN For Fever Ref 0 09/01/16 Albuterol HFA (Proair HFA)8.5 Gm Hfa.aer.ad2 Puffs INHALATION Q4H #1 INHALER 09/01/[address] 40 Mg Tablet.dr40 Mg PO DAILY Ref 0 09/01/16 Lisinopril 10 Mg Qqambl37 Mg PO DAILY 30 Days Ref 0 09/01/16 Hydrochlorothiazide 12.5 Mg Kxqser56.5 Mg PO DAILY 30 Days Ref 0 09/01/16 Cholecalciferol (Vitamin D3) (Vitamin D3)50,000 Unit Nosioem29,000 Unit PO 09/01/16 Atorvastatin (Lipitor)40 Mg Gtrvva52 Mg PO DAILY Ref 0 09/01/16 Aspirin 81 Mg Fwumzf04 Mg PO DAILY Ref 0 09/01/16 Fluticasone/Salmeterol (Advair Hfa 115-21 Mcg Inhaler)12 Gm Hfa.aer.ad2 Puff IH BID #1 INHALER Ref 0 09/01/16 Discontinued Reported Medications Acetaminophen 325 Mg Zqgjzu243 Mg PO Q4H PRN For Fever Ref 0 05/17/16 Albuterol HFA (Proair HFA)8.5 Gm Hfa.aer.ad2 Puffs INHALATION Q4H PRN For Shortness of Breath #1 INHALER 05/17/16 Aspirin Chew 81 Mg Chew81 Mg PO DAILY Ref 0 05/17/16 Atorvastatin (Lipitor)40 Mg Zekqax76 Mg PO HS Ref 0 05/17/16 Cholecalciferol (Vitamin D3) (Vitamin D)1,000 Unit Tablet1,000 Unit PO DAILY #1 BOTTLE Ref 0 05/17/16 Hydrochlorothiazide 25 Mg Ybedip27.5 Mg PO QAM 30 Days Ref 0 05/17/16 Discontinued Scripts Doxycycline Monohyd 100 Mg Jjafob603 Mg PO BID #28 TABLET Ref 0 Prov:Iglesia Marshall MD 08/03/16 Hydrocodone-Acetaminophen 5-325 mg 1 Each Tablet1 Tablet PO Q6H PRN For Pain # 20 TABLET Ref 0 Prov:Iglesia Marshall MD 08/03/16 Metoprolol Tartrate 25 Mg Nhzcsw78.5 Mg PO BID 15 Days Ref 0 Prov:Silvia Bain DO 05/19/16 Lisinopril (Zestril)10 Mg Qiichz67 Mg PO DAILY 30 Days Prov:Danielle Haley MD 11/05/[address] (Protonix)40 Mg Hcxgez97 Mg PO DAILYAC #30 Prov:Raudel Courtney PA-C 10/01/13 History History of ENT Problems?: No HEENT History: Positive for:: Cataracts (cataract surgery at left eye) Hearing Problem Denies:: Abnormal Airway Difficult Intubation Dysphagia Sinus Problem Denture Type: None Teeth Condition: Missing Teeth Hx of Heart Problems?: Yes Cardiovascular History: Positive for:: Chest Pain Hypertension Irregular Heartbeat (a-fib) Denies:: AICD Abdominal Aortic Aneurism Atrial Fibrillation Cardiac Surgery Congestive Heart Failure Edema Heart Murmur Pacemaker Thrombophlebitis Valvular Heart Disease Hx of Respiratory Problem?: Yes Respiratory History: Positive for:: COPD Dyspnea (with exertion) Denies:: Asthma Chest Surgery Cough Emphysema Hemoptysis Pneumonia Tuberculosis Use of C-PAP Machine Hx Neurologic Problems?: Yes Neurological History: Positive for:: CVA (tia) Headaches Denies:: Alzheimer's Disease Dementia Dizziness Parkinson's Disease Seizures Hx of GI Problems?: Yes Hx of Problems?: Yes Genitourinary History: Positive for:: Urinary Tract Infection (RECENTLY [place]) Denies:: HX of Hemodialysis Kidney Stones HX of Peritoneal Dialysis: No Female Hx: Denies:: Currently Endometriosis Pelvic Inflammatory Problems with Breasts? Skin History: Positive for:: History Skin Disorders? (Psoriasis) Denies:: Pressure Ulcers Hx Musculoskeletal Problems?: Yes Musculoskeletal History: Positive for:: Musculoskeletal Trauma (S/P ORIF LT ANKLE) Denies:: Back Injury Joint Replacement Hx of Psycho/Social Problems?: No Psycho Social History: Denies:: Anxiety Bipolar Disorder Hx Depression Suicide Attempt Hx Surgeries?: Yes (RT COLECTOMY,CLARICE,TONSILLECTOMY,HYST,ORIF LT ANKLE) Hx Any Other Health Problems?: Yes Other History: Positive for:: Cancer (colon cancer removed) Hospitalization (ANEMIA,SEPSIS, COPD) Denies:: Endocrine Disease Thyroid Disease History Blood Transfusions: Positive for:: Blood Transfusions Denies:: Blood Transfuse Reaction Hx Diabetes: No Hx Alcohol Use: Yes (last drink 2013)Hx Substance Use: No Smoking Status: Former Smoker Have You Smoked inLast 12 mo: Yes Stop/Bang Risk Assessment Category Category 1A: Patient has history of documented sleep apnea, and HAS NOT received any narcotic, sedative or anesthesia administration during this stay. Category 1B: Patient has history of documented sleep apnea, and HAS received any narcotic , sedative or anesthesia administration during this stay Category 2: Patient has SUSPECTED Obstructive Sleep Apnea, and HAS received any narcotic , sedative or anesthesia administration during this stay. Category 3: Patient has SUSPECTED Obstructive Sleep Apnea and HAS NOT received narcotic, sedative or anesthesia administration during this stay. Category 4: Outpatient in Procedural Areas with known sleep apnea or who screen positive for High Risk via the STOP/BANG questionnaire. Exam Exam General Appearance: Alert HEENT/AIRWAY: MP 2, Neck Movement (FROM, 3 FB) Plan Impression Patient chart reviewed, patient interviewed and anesthestic plan with risks, benefits, and alternatives discussed, and informed consent obtained. NPO per Anesth. Guidelines: Yes ASA Physical Status: ASA3 Severe Disease Anesthetic Plan: MAC Bene/Risks/Altern/Consents: Yes HP Complete Prior to Induction: Yes Elieser Whitt MD Sep 02, 2016 08:37
[2016-09-02] MEDS ORDERED: Lactated Ringer's 1,000 ML IV SCH (09:43)
--- NOTE | 2016-09-02 09:43 | PCM.ANEP1 ---
Post Anesthesia PACU Phase 1 Assessment Vital Signs Vital Signs Date Time Temp Pulse Resp B/P Pulse Ox O2 Delivery O2 Flow Rate FiO2 09/02/16 09:38 36.5 71 14 115/57 98 Room Air 09/02/16 08:38 84 16 138/68 100 Room Air Anesthetic Administered: MAC Level of Alertness: Awake, talking THAKUR's with Equal Strength: Yes Pain: No Nausea or Vomiting: No CV Function & Hydration Stable: Yes Airway Device: Oxygen Delivery: Nasal Cannula Lungs: Other PACU Phase 2 Assessment Complications: No Follow up Care: N/A Patient Instructions Provided: N/A Elieser Whitt MD Sep 02, 2016 09:43
[2016-09-02] MEDS ORDERED: MetoCLOpramide 5 mg/mL 2 mL Inj IVPUSH PRN (09:45)
[2016-09-02] MEDS ORDERED: Ondansetron 2 mg/mL 2 mL Inj IVPUSH PRN (09:45)
[2016-09-02 09:49] VITALS: BP 128/66; PULSE 66; O2SAT 99
--- NOTE | 2016-09-02 10:12 | ENDO ---
[address] [address] ENDOSCOPY PROCEDURE PATIENT: ERASMO FERNANDEZ : 1935 MR#: [id number] ADMIT: 09/02/2016 JOB ID: [id number] DATE OF SERVICE: 09/02/2016 PREOPERATIVE DIAGNOSIS(ES): History of proximal transverse colon cancer. POSTOPERATIVE DIAGNOSIS: 1. Small sigmoid colon polyp. 2. Sigmoid diverticulosis. OPERATION: Colonoscopy to ileocolonic anastomosis with snare polypectomy with cautery. SURGEON: Kenrick Camejo MD. INDICATIONS: An 81-year-old female who five years ago had a proximal transverse colon cancer underwent a right colectomy. Three years ago she had a colonoscopy showing a small sigmoid colon polyp. She is here for follow up colonoscopy. FINDINGS: She had a good prep. The scope was advanced to the anastomosis and upon withdrawal a 3 mm sigmoid colon polyp was identified. It was removed with a snare with cautery and retrieved and sent to Pathology. She had sigmoid diverticulosis. Retroflexed views of the rectum were normal. PROCEDURE: The procedure and sedation plan was discussed with the patient and nursing staff, and a procedural time-out was held. She received sedation provided by Dr. Dave Whitt from Anesthesia. An Olympus PCF-H180-AL video colonoscope was passed transanally, advanced to the ileocolonic anastomosis. As the scope was withdrawn the polyp was identified and removed as stated above. There is no bleeding from the polypectomy site. There are no apparent complications. The patient tolerated the procedure well. IMPRESSION: Sigmoid colon polyp. RECOMMENDATIONS: Repeat colonoscopy in five years assuming the patient's health will support that.
--- NOTE | 2016-09-06 14:59 | PATH ---
SURGICAL PATHOLOGY Attending Physician:Mary Ellen Verdugo CASE STATUS: Signed Out PATIENT NAME: ERASMO FERNANDEZ PID: [id number] : 1935 DATE COLLECTED:09/02/2016 16:12 SPECIMEN: Colon, Polyp CLINICAL HISTORY: PERSONAL HISTORY OF COLON CANCER, COLON POLYP 1). SIGMOID COLON POLYP FINAL DIAGNOSIS: 1.SIGMOID COLON POLYP: TUBULAR ADENOMA. ICD10 D12.5 GROSS DESCRIPTION: Received in formalin, labeled with the patient' s name and "sigmoid colon polyp", is one fragment of de s[place], soft tissue measuring 0.3 x 0.2 x 0.2 cm. The fragment is totally submitted in one cassette. ([id number]) MICRO DESCRIPTION: See diagnosis. ICD-9 CODES: CPT CODES: 1: 82092 Electronically Signed Out Frank Borjas MD [facility] [address], [place] [address] Technical component performed at [facility], [facility] [address], [place], [address]
== END 2016-09-02 23:59 | disposition home or self-care (01) ==
LOC: END 08:12
PROVIDERS: ATTEND Surgery
DX: D12.5 Benign neoplasm of sigmoid colon (principal); K57.30 Diverticulosis of large intestine without perforation or abscess without bleeding; I10 Essential (primary) hypertension; J44.9 Chronic obstructive pulmonary disease, unspecified; R51 Headache; Z86.73 Personal history of transient ischemic attack (TIA), and cerebral infarction without residual deficits; Z79.82 Long term (current) use of aspirin; Z79.899 Other long term (current) drug therapy; Z87.891 Personal history of nicotine dependence; Z85.038 Personal history of other malignant neoplasm of large intestine
CPT/HCPCS: 45385; 88305; J3010; J7120